=== PATIENT | female | born 1960 | race Caucasian/White ===

== ENCOUNTER 2022-03-18 14:34 | Emergency (ER) | payer MEDICAID, SELFPAY ==
[2022-03-18] VITALS (43 sets, daily range): BP systolic 114–151; BP diastolic 57–104; PULSE 70–98; RESP 4–28; TEMP 36.9; O2SAT 95–100
--- NOTE | 2022-03-18 14:30 | RT.EKG_ITS ---
APPROVED REPORT Exam: Resting ECG Reason for Exam: DYSPNEA Patient Location: E HR:72 bpm ECG Measurements Heart Rate 72 AXIS NE 133 P -23 QRSd 96 QRS 95 QT 405 T 39 QTc 443 Conclusion Sinus rhythm...normal P axis, V-rate 60- 99 Nonspecific T abnormalities, anterior leads...T <-0.10mV, V2-V4. Sinus. Normal axis. T wave inversion in lead V1-3. No STEMI. I have reviewed and interpreted ECG and agree with software generated interpretation.
--- NOTE | 2022-03-18 14:41 | W.ED.GENAD ---
Discharge Plan Disposition Patient Disposition: HOME Condition: Stable Discharge Details Clinical Impression: Acute exacerbation of chronic obstructive pulmonary disease Primary Care Provider: SABAS GONZALEZ ED Provider: Shawnee Gonzalez Home Meds and New Rx's Prescriptions: New albuterol sulfate 90 mcg/actuation HFA aerosol inhaler 2 puff inhalation Q6H PRN (Reason: shortness of breath or wheezing) Qty: 8.5 0RF Eliquis 5 mg tablet 5 mg PO BID Qty: 60 0RF benztropine 1 mg tablet 1 mg PO QHS Qty: 30 0RF fenofibrate 40 mg tablet 40 mg PO DAILY Qty: 30 0RF fluticasone propion-salmeterol [Advair Diskus] 100-50 mcg/dose blister with device 1 inh inhalation Q12H Qty: 60 0RF lisinopril-hydrochlorothiazide 20-12.5 mg tablet 1 tab PO DAILY Qty: 30 0RF metformin 500 mg tablet 250 mg PO DAILY Qty: 30 0RF olanzapine 20 mg tablet 20 mg PO BID Qty: 60 0RF pantoprazole [Protonix] 40 mg tablet,delayed release (DR/EC) 40 mg PO QHS Qty: 30 0RF ropinirole 2 mg tablet 2 mg PO DAILY Qty: 30 0RF simvastatin 20 mg tablet 20 mg PO QHS Qty: 30 0RF Spiriva with HandiHaler 18 mcg capsule, w/inhalation device 1 cap inhalation DAILY Qty: 30 0RF Rx Instructions: puncture 1 cap using device; one dose = 2 inhalations Trintellix 10 mg tablet 10 mg PO DAILY Qty: 30 0RF albuterol sulfate 2.5 mg /3 mL (0.083 %) solution for nebulization 1.25 mg inhalation TID 10 Days Qty: 45 0RF prednisone 20 mg tablet See Rx Instructions .ROUTE .COMPLEX Qty: 18 0RF Rx Instructions: Take 3 tabs daily for 3 days, then 2 tabs daily for 3 days, then 1 tab daily for 3 days. doxycycline hyclate 100 mg tablet 100 mg PO BID 7 Days Qty: 14 0RF Continued metformin 500 mg Tablet 250 mg PO DAILY ipratropium-albuterol 0.5 mg-3 mg(2.5 mg base)/3 mL Solution For Nebulization 3 ml INHALATION TID lisinopril-hydrochlorothiazide 20-12.5 mg Tablet 1 tab PO DAILY ropinirole 2 mg Tablet 2 mg PO DAILY pantoprazole [Protonix] 40 mg Tablet,Delayed Release (Dr/Ec) 40 mg PO QHS simvastatin 20 mg Tablet 20 mg PO QHS fluticasone propion-salmeterol [Advair Diskus] 500-50 mcg/dose Blister With Device 1 inh INHALATION Q12H benztropine 1 mg Tablet 1 mg PO QHS albuterol sulfate [Proventil HFA] 90 mcg/actuation Hfa Aerosol Inhaler 2 puff INHALATION QID albuterol sulfate [ProAir HFA] 90 mcg/actuation Hfa Aerosol Inhaler 2 puff INHALATION QID olanzapine 20 mg Tablet 20 mg PO BID Spiriva with HandiHaler 18 mcg Capsule, W/Inhalation Device 18 mcg INHALATION DAILY fenofibrate 40 mg Tablet 40 mg PO DAILY Eliquis 5 mg Tablet 5 mg PO BID Trintellix 10 mg Tablet 10 mg PO DAILY Discharge Instructions Instructions: COPD (Chronic Obstructive Pulmonary Disease) (ED) Additional Instructions: Your lab work, EKG and imaging today is reassuring and shows no evidence of acute concerning or significant findings. Your COVID test today is negative. Your symptoms may be due to an exacerbation of your COPD or asthma. You are being sent home with printed refill prescriptions of all of your medications to take them as directed. You were also given prescriptions for the antibiotic doxycycline and the steroid medication prednisone to start tomorrow and take as directed until finished. You have been placed on care management list to arrange for a follow-up appoint with your primary care doctor to establish care and for reevaluation. Return immediately to the emergency department if you develop any worsening or new concerning symptoms. Discharge Data Discharge Date/Time-TO BE ENTERED AT DEPARTURE: 03/18/22 19:04 Discharge Physician: Shawnee Gonzalez Medical Decision Making 61-year-old female with a history of COPD and asthma chronically on 2 L nasal cannula throughout the day and 3 L at night presents for shortness of breath and cough over the past few days. Sent from [facility] for shortness of breath. Patient states she has not had any of her medication for the past month since moving from [place]. Oxygen saturation 100% on 3 L nasal cannula oxygen. Patient has scattered wheezing throughout but demonstrates no signs of respiratory distress. Considering her age and history, will obtain screening labs, chest x-ray and COVID. We will give DuoNeb, Solu-Medrol and reassess. Patient continued to have wheezing and given another 5 mg albuterol neb with significant improvement of her symptoms. Labs and imaging reviewed. White blood cell count 3. Hemoglobin 10. Mag 1.7 which was repleted. No old labs to compare. D-dimer within normal limits. Troponin negative. COVID-negative. Chest x-ray negative. Patient is requesting to go home. She was given prescriptions for all of her medication and placed on care management list to arrange for a follow-up appointment with the primary care doctor to establish care. Patient was given [facility] information for help with prescriptions as needed. Usual and customary return precautions given prior to discharge. Medical Records Medical records reviewed: Yes I reviewed the patient's medical records. Imaging Data Radiologic Study: Radiologist's impression: XR PORTABLE CHEST AP CLINICAL HISTORY: ? cough, sob, r/o acute disease. ? TECHNIQUE:? 2D digital imaging was performed. COMPARISON:? No exams were available for comparison FINDINGS: Single AP portable view. Heart size is upper normal.? The mediastinum is not widened. Lungs are clear.? No infiltrates nor obvious pleural effusions. IMPRESSION: No acute pulmonary findings on this single AP portable view of the chest. Lab Data Lab results reviewed: Yes I reviewed the patient's lab results. Labs: Laboratory Tests Range/Units 03/18/22 03/18/22 03/18/22 15:30 16:10 16:10 WBC (4.4-10.8) 10^3/uL 3.27 L RBC (3.93-5.22) 10^6/uL 3.93 Hgb (11.2-15.7) g/dL 10.2 L Hct (36.0-46.0) % 33.9 L MCV (80-95) fL 86 MCH (27.0-33.0) pg 26.0 L MCHC (32.0-36.0) % 30.1 L RDW (11.7-14.6) % 15.0 H Plt Count (130-400) 10^3/uL 164 MPV (8.0-11.0) fL 9.8 Immature Gran % 0.6 Neutrophils % 48.3 Lymphocytes % 40.1 Monocytes % 11.0 Eosinophils % 0.0 Basophils % 0.0 Nucleated RBC % (0.0-0.3) % 0.0 Absolute Neutrophils (1.2-6.7) 10^3/uL 1.58 Absolute Lymphocytes (1.2-3.4) 10^3/uL 1.31 Absolute Monocytes (0.1-0.8) 10^3/uL 0.36 Absolute Eosinophils (0.0-0.7) 10^3/uL 0.00 Absolute Basophils (0.0-0.2) 10^3/uL 0.00 D-Dimer (<500) ng/mlFEU Sodium (136-145) mmol/L 142 Potassium (3.5-5.1) mmol/L 3.9 Chloride (98-107) mmol/L 103 Carbon Dioxide (21.0-32.0) mmol/L 32.1 H Anion Gap (3-11) mmol/L 6.9 BUN (7-18) mg/dL 6 L Creatinine (0.55-1.02) mg/dL 0.8 Estimated GFR/1.73 m2 (mL/min/1.73m2) >= 60.00 Glucose (74-106) mg/dL 96 Calcium (8.5-10.1) mg/dL 9.8 Magnesium (1.8-2.4) mg/dL 1.7 L Total Bilirubin (0.2-1.0) mg/dL 0.4 AST (15-37) U/L 14 L ALT (14-59) U/L 22 Alkaline Phosphatase (46-116) U/L 75 Troponin I (<or=60) ng/L < 50 Total Protein (6.4-8.2) g/dL 7.2 Albumin (3.4-5.0) g/dL 3.6 COVID-19 Source Nasal/Nares SARS-CoV-2 (PCR) (Negative) Negative Range/Units 03/18/22 16:10 WBC (4.4-10.8) 10^3/uL RBC (3.93-5.22) 10^6/uL Hgb (11.2-15.7) g/dL Hct (36.0-46.0) % MCV (80-95) fL MCH (27.0-33.0) pg MCHC (32.0-36.0) % RDW (11.7-14.6) % Plt Count (130-400) 10^3/uL MPV (8.0-11.0) fL Immature Gran % Neutrophils % Lymphocytes % Monocytes % Eosinophils % Basophils % Nucleated RBC % (0.0-0.3) % Absolute Neutrophils (1.2-6.7) 10^3/uL Absolute Lymphocytes (1.2-3.4) 10^3/uL Absolute Monocytes (0.1-0.8) 10^3/uL Absolute Eosinophils (0.0-0.7) 10^3/uL Absolute Basophils (0.0-0.2) 10^3/uL D-Dimer (<500) ng/mlFEU 426 Sodium (136-145) mmol/L Potassium (3.5-5.1) mmol/L Chloride (98-107) mmol/L Carbon Dioxide (21.0-32.0) mmol/L Anion Gap (3-11) mmol/L BUN (7-18) mg/dL Creatinine (0.55-1.02) mg/dL Estimated GFR/1.73 m2 (mL/min/1.73m2) Glucose (74-106) mg/dL Calcium (8.5-10.1) mg/dL Magnesium (1.8-2.4) mg/dL Total Bilirubin (0.2-1.0) mg/dL AST (15-37) U/L ALT (14-59) U/L Alkaline Phosphatase (46-116) U/L Troponin I (<or=60) ng/L Total Protein (6.4-8.2) g/dL Albumin (3.4-5.0) g/dL COVID-19 Source SARS-CoV-2 (PCR) (Negative) ECG Data Attestation: I personally reviewed and interpreted this ECG (s) as follows: Interpretation: rate of 72, normal axis, T wave inversion in leads V1-3, no STEMI. HPI General Mode of arrival: EMS. Date/Time Provider Initiated Documentation: 03/18/22 14:41. Limitations to Documentation: no limitations. Information obtained by: patient. Related Data Home Medications Medication Instructions Recorded Confirmed albuterol sulfate 2.5 mg/3 mL 1.25 mg (1.5 mL) inhalation TID 10 03/18/22 (0.083 %) solution for nebulization days #45 mL albuterol sulfate 90 mcg/actuation 2 puff inhalation Q6H PRN 03/18/22 aerosol inhaler shortness of breath or wheezing #8.5 grams albuterol sulfate 90 mcg/actuation 2 puff inhalation QID 03/18/22 03/18/22 aerosol inhaler (ProAir HFA) albuterol sulfate 90 mcg/actuation 2 puff inhalation QID 03/18/22 03/18/22 aerosol inhaler (Proventil HFA) apixaban 5 mg tablet (Eliquis) 5 mg PO BID 03/18/22 03/18/22 apixaban 5 mg tablet (Eliquis) 5 mg PO BID #60 tabs 03/18/22 benztropine 1 mg tablet 1 mg PO QHS 03/18/22 03/18/22 benztropine 1 mg tablet 1 mg PO QHS #30 tabs 03/18/22 doxycycline hyclate 100 mg tablet 100 mg PO BID 7 days #14 tabs 03/18/22 fenofibrate 40 mg tablet 40 mg PO DAILY 03/18/22 03/18/22 fenofibrate 40 mg tablet 40 mg PO DAILY #30 tabs 03/18/22 fluticasone 100 mcg-salmeterol 50 1 inh inhalation Q12H #60 ea 03/18/22 mcg/dose blistr powdr for inhalation (Advair Diskus) fluticasone 500 mcg-salmeterol 50 1 inh inhalation Q12H 03/18/22 03/18/22 mcg/dose blistr powdr for inhalation (Advair Diskus) ipratropium 0.5 mg-albuterol 3 mg 3 ml inhalation TID 03/18/22 03/18/22 (2.5 mg base)/3 mL nebulization soln lisinopril 20 1 tab PO DAILY 03/18/22 03/18/22 mg-hydrochlorothiazide 12.5 mg tablet lisinopril 20 1 tab PO DAILY #30 tabs 03/18/22 mg-hydrochlorothiazide 12.5 mg tablet metformin 500 mg tablet 250 mg PO DAILY 03/18/22 03/18/22 metformin 500 mg tablet 250 mg PO DAILY #30 tabs 03/18/22 olanzapine 20 mg tablet 20 mg PO BID 03/18/22 03/18/22 olanzapine 20 mg tablet 20 mg PO BID #60 tabs 03/18/22 pantoprazole 40 mg tablet,delayed 40 mg PO QHS 03/18/22 03/18/22 release (Protonix) pantoprazole 40 mg tablet,delayed 40 mg PO QHS #30 tabs 03/18/22 release (Protonix) prednisone 20 mg tablet See Rx Instructions .Route 03/18/22 .COMPLEX #18 tabs ropinirole 2 mg tablet 2 mg PO DAILY 03/18/22 03/18/22 ropinirole 2 mg tablet 2 mg PO DAILY #30 tabs 03/18/22 simvastatin 20 mg tablet 20 mg PO QHS 03/18/22 03/18/22 simvastatin 20 mg tablet 20 mg PO QHS #30 tabs 03/18/22 tiotropium bromide 18 mcg capsule 1 cap inhalation DAILY #30 03/18/22 with inhalation device (Spiriva inhalations with HandiHaler) tiotropium bromide 18 mcg capsule 18 mcg inhalation DAILY 03/18/22 03/18/22 with inhalation device (Spiriva with HandiHaler) vortioxetine 10 mg tablet 10 mg PO DAILY 03/18/22 03/18/22 (Trintellix) vortioxetine 10 mg tablet 10 mg PO DAILY #30 tabs 03/18/22 (Trintellix) Previous Rx's Medication Instructions Recorded albuterol sulfate 2.5 mg/3 mL 1.25 mg (1.5 mL) inhalation TID 10 03/18/22 (0.083 %) solution for nebulization days #45 mL albuterol sulfate 90 mcg/actuation 2 puff inhalation Q6H PRN 03/18/22 aerosol inhaler shortness of breath or wheezing #8.5 grams apixaban 5 mg tablet (Eliquis) 5 mg PO BID #60 tabs 03/18/22 benztropine 1 mg tablet 1 mg PO QHS #30 tabs 03/18/22 doxycycline hyclate 100 mg tablet 100 mg PO BID 7 days #14 tabs 03/18/22 fenofibrate 40 mg tablet 40 mg PO DAILY #30 tabs 03/18/22 fluticasone 100 mcg-salmeterol 50 1 inh inhalation Q12H #60 ea 03/18/22 mcg/dose blistr powdr for inhalation (Advair Diskus) lisinopril 20 1 tab PO DAILY #30 tabs 03/18/22 mg-hydrochlorothiazide 12.5 mg tablet metformin 500 mg tablet 250 mg PO DAILY #30 tabs 03/18/22 olanzapine 20 mg tablet 20 mg PO BID #60 tabs 03/18/22 pantoprazole 40 mg tablet,delayed 40 mg PO QHS #30 tabs 03/18/22 release (Protonix) prednisone 20 mg tablet See Rx Instructions .Route 03/18/22 .COMPLEX #18 tabs ropinirole 2 mg tablet 2 mg PO DAILY #30 tabs 03/18/22 simvastatin 20 mg tablet 20 mg PO QHS #30 tabs 03/18/22 tiotropium bromide 18 mcg capsule 1 cap inhalation DAILY #30 03/18/22 with inhalation device (Spiriva inhalations with HandiHaler) vortioxetine 10 mg tablet 10 mg PO DAILY #30 tabs 03/18/22 (Trintellix) General Stated Complaint: RespSymp SAMUEL: 3 Review of Systems All systems reviewed & are unremarkable except as noted in HPI and below Constitutional Constitutional: Denies chills, Denies excessive sweating, Denies fatigue, Denies fever(s), Denies weakness and Denies weight loss Eyes Eyes: Reports system reviewed and no additional complaints, except as documented and Denies blurry vision ENT Ears, Nose, Mouth, and Throat: Denies vertigo, Denies dizziness, Denies otalgia, Denies nasal congestion, Denies sore throat and Denies throat swelling Cardiovascular Cardiovascular: Denies chest pain, Denies syncope, Denies rapid heart rate and Reports dyspnea Respiratory Respiratory: Denies chest congestion, Reports cough, Denies pain on inspiration and Reports dyspnea Gastrointestinal Gastrointestinal: Denies abdominal pain, Denies diarrhea and Denies vomiting Genitourinary Genitourinary: Denies hematuria, Denies dysuria and Denies flank pain Musculoskeletal Musculoskeletal: Denies back pain and Denies joint swelling Integumentary/Breasts Skin/Breast: Denies lesions and Denies rash Neurologic Neurologic: Denies behavioral changes, Denies confusion, Denies vertigo, Denies dizziness, Denies syncope, Denies localized weakness and Denies weakness Psychiatric Psychiatric: Denies behavioral changes, Denies confusion and Denies depression Endocrine Endocrine: Denies excessive sweating and Denies fatigue Hematologic/Lymphatic Hematologic/Lymphatic: Denies easy bruising and Denies lymphadenopathy Allergic/Immunologic Allergic/Immunologic: Denies throat swelling PFSH All Active Problems (Updated 03/18/22 @ 18:25 by Shawnee Gonzalez DO) Acute exacerbation of chronic obstructive pulmonary disease (Acute) Medical History (Updated 03/18/22 @ 18:25 by Shawnee Gonzalez DO) Asthma COPD (chronic obstructive pulmonary disease) Pulmonary embolism Surgical History (Updated 03/18/22 @ 15:06 by Shawnee Gonzalez DO) History of ankle surgery History of bilateral tubal ligation History of hysterectomy Social History Smoking risk assessment performed?: No Do you feel safe at home: Yes Exam Const General: cooperative Orientation: alert, awake and oriented x3 HENMT Head: normal to inspection Ears: hearing grossly normal bilaterally and external ears normal General nose exam: external nose normal Face and sinus: normal facial exam Mouth: oral mucosae normal Teeth and gingiva: dentition normal Throat: posterior oropharynx normal Eyes General: appearance normal, both eyes and all related structures Eyelids: eyelids normal Pupils: PERRL EOM: EOM intact bilaterally Neck Neck: normal visual inspection Lymphatic: no lymphadenopathy noted Chest Chest: normal inspection of the chest Resp Effort & Inspection: normal respiratory effort and able to speak in complete sentences Auscultation: wheezes scattered wheezes Cardio Rate: regular rate Rhythm: regular rhythm GI Inspection: normal to inspection Palpation: soft, not firm, no guarding, no hepatosplenomegaly, no masses and nontender Auscultation: normal bowel sounds Back/Spine/Pelvis Back: no CVA tenderness Skin General skin exam: no rashes or lesions noted Neuro General: patient alert and patient awake Cognition: normal cognition Speech: speech normal Gait: normal gait Motor: muscle tone normal throughout Sensory Exam: no sensory deficits noted Extrem General: normal to inspection, full ROM, capillary refill normal and no edema Psych Appearance: grossly normal Mental Status: mental status grossly normal Speech and Movement: speech and movement normal Affect: normal affect Thought Process: normal Course Vital Signs Vital signs: Vital Signs Temperature 98.4 F 03/18/22 14:33 Pulse 82 03/18/22 14:33 Respiratory Rate 24 03/18/22 14:33 Blood Pressure 151/100 H 03/18/22 14:33 Pulse Oximetry 100 03/18/22 14:33 Temperature 98.4 F 03/18/22 14:33 Temperature Source Temporal Artery Scan 03/18/22 14:33 Pulse 82 03/18/22 14:33 Respiratory Rate 24 03/18/22 14:33 Blood Pressure 151/100 H 03/18/22 14:33 Blood Pressure Position Sitting 03/18/22 14:33 Pulse Oximetry 100 03/18/22 14:33 Oxygen Delivery Method Nasal Cannula 03/18/22 14:33 Oxygen Flow Rate 2 03/18/22 14:33
--- NOTE | 2022-03-18 15:00 | DI.RAD_ITS ---
Exam(s) XR PORTABLE CHEST AP EXAM: XR PORTABLE CHEST AP CLINICAL HISTORY: cough, sob, r/o acute disease. TECHNIQUE: 2D digital imaging was performed. COMPARISON: No exams were available for comparison FINDINGS: Single AP portable view. Heart size is upper normal. The mediastinum is not widened. Lungs are clear. No infiltrates nor obvious pleural effusions. IMPRESSION: No acute pulmonary findings on this single AP portable view of the chest. DATA REPOSITORY: RADIATION DOSE DELIVERED: All CT scans at this facility use at least one of these dose optimization techniques: automated exposure control; mA and/or kV adjustment per patient size (includes targeted e xams where dose is matched to clinical indication); or iterative reconstruction.
[2022-03-18 15:41] LABS: Source Nasal/Nares
[2022-03-18] MEDS: Albuterol/Ipratropium 3 ML UPD VIAL UPD (15:41)
[2022-03-18] MEDS: methylPREDNISolone SUCC 125 MG VIAL IVP (15:41)
[2022-03-18] MEDS: Albuterol 2.5 MG/3 ML INH SOLN VIAL 5 MG UPD (15:57)
[2022-03-18 16:27] LABS: Abs Immature Grans 0.02 10^3/uL (0.0-0.06); Absolute Lymphocyte Count 1.31 10^3/uL (1.2-3.4); Absolute Monocyte Count 0.36 10^3/uL (0.1-0.8); Absolute Neutrophil Count 1.58 10^3/uL (1.2-6.7); HCT 33.9 % (36.0-46.0); HGB 10.2 g/dL (11.2-15.7); Immature Grans % 0.6; Lymphocytes % 40.1; MCHC 30.1 % (32.0-36.0); MCV 86 fL (80-95); MPV 9.8 fL (8.0-11.0); Neutrophils % 48.3; Platelet Count 164 10^3/uL (130-400); RBC 3.93 10^6/uL (3.93-5.22); RDW-SD 47.7 fL; WBC 3.27 10^3/uL (4.4-10.8)
[2022-03-18 16:36] LABS: COVID-19 PCR Negative (Negative)
[2022-03-18 16:43] LABS: ALT 22 U/L (14-59); AST 14 U/L (15-37); Albumin 3.6 g/dL (3.4-5.0); Alkaline Phosphatase 75 U/L (46-116); Anion Gap 6.9 mmol/L (3-11); BUN 6 mg/dL (7-18); Bilirubin, Total 0.4 mg/dL (0.2-1.0); CO2 32.1 mmol/L (21.0-32.0); CREATININE 0.8 mg/dL (0.55-1.02); Calcium 9.8 mg/dL (8.5-10.1); Chloride 103 mmol/L (98-107); Glucose 96 mg/dL (74-106); Magnesium 1.7 mg/dL (1.8-2.4); Potassium 3.9 mmol/L (3.5-5.1); Sodium 142 mmol/L (136-145); Total Protein 7.2 g/dL (6.4-8.2); Troponin I < 50 ng/L (<or=60)
[2022-03-18] MEDS: MAGNESIUM SULFATE 1 GM/100 ML BAG IVPB (17:05)
[2022-03-18 17:07] LABS: D-Dimer 426 ng/mlFEU (<500)
--- NOTE | 2022-03-18 18:38 | NUR.NOTE ---
Nursing Note: PT INFO FAXED TO PCP FOR FOLLOW UP NEXT WEEK. WILFRID, ED
== END 2022-03-18 19:04 | disposition home or self-care (01) ==
PROVIDERS: Emergency Provider Physician Assistant; PCP Nurse Practitioner Family
DX: J44.1 Chronic obstructive pulmonary disease with (acute) exacerbation (principal); R06.00 Dyspnea, unspecified; R05.1 Acute cough
CPT/HCPCS: 36415; 80053; 87635; 93005; 96365; 96375; 99284; 71045; 83735; 84484; 85025; 85379; 93010; J2930; J3475; J7613; J7620

== ENCOUNTER 2022-04-30 19:15 | Outpatient (REF) | payer MEDICAID, SELFPAY ==
[2022-04-30 19:22] LABS: Abs Immature Grans 0.06 10^3/uL (0.0-0.06); Absolute Lymphocyte Count 1.43 10^3/uL (1.2-3.4); Absolute Monocyte Count 0.65 10^3/uL (0.1-0.8); Absolute Neutrophil Count 4.32 10^3/uL (1.2-6.7); HCT 34.2 % (36.0-46.0); Immature Grans % 0.9; Lymphocytes % 22.1; MCH 26.8 pg (27.0-33.0); MCHC 32.2 % (32.0-36.0); MCV 83 fL (80-95); MPV 10.1 fL (8.0-11.0); Monocytes % 10.1; Neutrophils % 66.9; Platelet Count 225 10^3/uL (130-400); RBC 4.11 10^6/uL (3.93-5.22); RDW 17.8 % (11.7-14.6); RDW-SD 52.1 fL; WBC 6.46 10^3/uL (4.4-10.8)
[2022-04-30 19:48] LABS: ALT 22 U/L (14-59); AST 19 U/L (15-37); Alkaline Phosphatase 81 U/L (46-116); Anion Gap 12.1 mmol/L (3-11); BUN 18 mg/dL (7-18); Bilirubin, Total 0.4 mg/dL (0.2-1.0); CO2 27.9 mmol/L (21.0-32.0); CREATININE 1.9 mg/dL (0.55-1.02); Calcium 9.5 mg/dL (8.5-10.1); Chloride 99 mmol/L (98-107); Estimated GFR 26.96 (mL/min/1.73m2); Glucose 102 mg/dL (74-106); Potassium 3.8 mmol/L (3.5-5.1); Sodium 139 mmol/L (136-145); TSH (W/Ref FT4) 0.97 uIU/mL (0.36-3.74); Total Protein 7.2 g/dL (6.4-8.2)
== END 2022-04-30 19:16 | disposition home or self-care (01) ==
LOC: NCHCN 19:15
PROVIDERS: PCP Nurse Practitioner Family; Visit Provider Nurse Practitioner Family
DX: J44.9 Chronic obstructive pulmonary disease, unspecified (principal); Z79.899 Other long term (current) drug therapy
CPT/HCPCS: 80053; 84443; 85025

== ENCOUNTER 2022-05-07 19:01 | Outpatient (REF) | payer MEDICAID, SELFPAY ==
[2022-05-07 18:08] LABS: Abs Immature Grans 0.01 10^3/uL (0.0-0.06); Absolute Eosinophil Count 0.01 10^3/uL (0.0-0.7); Absolute Lymphocyte Count 0.73 10^3/uL (1.2-3.4); Absolute Monocyte Count 0.33 10^3/uL (0.1-0.8); Absolute Neutrophil Count 2.39 10^3/uL (1.2-6.7); Eosinophils % 0.3; HCT 33.8 % (36.0-46.0); HGB 10.7 g/dL (11.2-15.7); Immature Grans % 0.3; MCH 26.7 pg (27.0-33.0); MCHC 31.7 % (32.0-36.0); MCV 84 fL (80-95); MPV 9.8 fL (8.0-11.0); Monocytes % 9.5; Neutrophils % 68.9; Platelet Count 161 10^3/uL (130-400); RBC 4.01 10^6/uL (3.93-5.22); RDW 17.6 % (11.7-14.6); RDW-SD 54.4 fL; WBC 3.47 10^3/uL (4.4-10.8)
== END 2022-05-07 19:02 | disposition home or self-care (01) ==
LOC: NCHCN 19:01
PROVIDERS: PCP Nurse Practitioner Family; Visit Provider Nurse Practitioner Family
DX: Z51.81 Encounter for therapeutic drug level monitoring (principal)
CPT/HCPCS: 85025

== ENCOUNTER 2022-05-13 16:42 | Outpatient (REF) | payer MEDICAID, SELFPAY ==
[2022-05-13 16:56] LABS: Abs Immature Grans 0.02 10^3/uL (0.0-0.06); Absolute Lymphocyte Count 0.89 10^3/uL (1.2-3.4); Absolute Neutrophil Count 3.41 10^3/uL (1.2-6.7); HGB 10.4 g/dL (11.2-15.7); Immature Grans % 0.4; Lymphocytes % 18.5; MCH 27.6 pg (27.0-33.0); MCHC 32.5 % (32.0-36.0); MCV 85 fL (80-95); MPV 10.6 fL (8.0-11.0); Monocytes % 10.4; Neutrophils % 70.7; Platelet Count 172 10^3/uL (130-400); RBC 3.77 10^6/uL (3.93-5.22); RDW 18.1 % (11.7-14.6); RDW-SD 55.2 fL; WBC 4.82 10^3/uL (4.4-10.8)
[2022-05-13 17:06] LABS: ALT 17 U/L (14-59); AST 14 U/L (15-37); Albumin 3.7 g/dL (3.4-5.0); Alkaline Phosphatase 75 U/L (46-116); Anion Gap 14.3 mmol/L (3-11); BUN 41 mg/dL (7-18); Bilirubin, Total 0.4 mg/dL (0.2-1.0); CO2 24.7 mmol/L (21.0-32.0); CREATININE 3.5 mg/dL (0.55-1.02); Calcium 9.2 mg/dL (8.5-10.1); Chloride 101 mmol/L (98-107); Estimated GFR 14.34 (mL/min/1.73m2); Glucose 144 mg/dL (74-106); Potassium 3.9 mmol/L (3.5-5.1); Sodium 140 mmol/L (136-145); Total Protein 7.2 g/dL (6.4-8.2)
== END 2022-05-13 16:43 | disposition home or self-care (01) ==
LOC: NCHCN 16:42
PROVIDERS: PCP Nurse Practitioner Family; Visit Provider Nurse Practitioner Family
DX: N17.9 Acute kidney failure, unspecified (principal)
CPT/HCPCS: 80053; 85025

== ENCOUNTER 2022-05-14 12:51 | Emergency (ER) | payer MEDICAID, SELFPAY ==
[2022-05-14] VITALS (58 sets, daily range): BP systolic 72–132; BP diastolic 30–95; PULSE 82–120; RESP 4–30; O2SAT 94–100
--- NOTE | 2022-05-14 13:15 | DI.RAD_ITS ---
Exam(s) XR PORTABLE CHEST AP EXAM: XR PORTABLE CHEST AP CLINICAL HISTORY: sob TECHNIQUE: COMPARISON: CR XR PORTABLE CHEST AP from 03/18/2022 FINDINGS: Portable upright chest at 1443 hours. The heart is not enlarged. Right lung is clear. On the left, there is some obscuration of the diaphragm raising the possibility of a basilar infiltra te or left pleural effusion.this finding was not present on prior radiographs of March 2022. Findings could represent pulmonary consolidation or left pleural effusion. PA and lateral chest suggested for further evaluation if clinically appropriate. IMPRESSION: RADIATION DOSE DELIVERED: Total DLP
--- NOTE | 2022-05-14 13:34 | ED.GENADUL_ITS ---
Discharge Plan Disposition Patient Disposition: STILL A PATIENT Condition: Stable Discharge Details Chief Complaint: RespSymp Primary Care Provider: SABAS GONZALEZ ED Provider: Shaka Major Home Meds and New Rx's Prescriptions: No Action fluticasone propion-salmeterol [Advair Diskus] 500-50 mcg/dose blister with device 1 inh inhalation Q12H ipratropium-albuterol 0.5 mg-3 mg(2.5 mg base)/3 mL Solution For Nebulization 3 ml INHALATION TID albuterol sulfate [ProAir HFA] 90 mcg/actuation Hfa Aerosol Inhaler 2 puff INHALATION QID albuterol sulfate 90 mcg/actuation HFA aerosol inhaler 2 puff inhalation Q6H PRN (Reason: shortness of breath or wheezing) Qty: 8.5 0RF Eliquis 5 mg tablet 5 mg PO BID Qty: 60 0RF benztropine 1 mg tablet 1 mg PO QHS Qty: 30 0RF fenofibrate 40 mg tablet 40 mg PO DAILY Qty: 30 0RF fluticasone propion-salmeterol [Advair Diskus] 100-50 mcg/dose blister with device 1 inh inhalation Q12H Qty: 60 0RF lisinopril-hydrochlorothiazide 20-12.5 mg tablet 1 tab PO DAILY Qty: 30 0RF metformin 500 mg tablet 250 mg PO DAILY Qty: 30 0RF olanzapine 20 mg tablet 20 mg PO BID Qty: 60 0RF pantoprazole [Protonix] 40 mg tablet,delayed release (DR/EC) 40 mg PO QHS Qty: 30 0RF ropinirole 2 mg tablet 2 mg PO DAILY Qty: 30 0RF simvastatin 20 mg tablet 20 mg PO QHS Qty: 30 0RF Spiriva with HandiHaler 18 mcg capsule, w/inhalation device 1 cap inhalation DAILY Qty: 30 0RF Rx Instructions: puncture 1 cap using device; one dose = 2 inhalations Trintellix 10 mg tablet 10 mg PO DAILY Qty: 30 0RF prednisone 20 mg tablet See Rx Instructions .ROUTE .COMPLEX Qty: 18 0RF Rx Instructions: Take 3 tabs daily for 3 days, then 2 tabs daily for 3 days, then 1 tab daily for 3 days. Medical Decision Making 62-year-old female history of schizophrenia, COPD, presents with shortness of breath dry cough and wheezing, expiratory wheeze on examination tachycardia and tachypnea. Relative hypoxia improved on nasal cannula. Will start nebs and steroids will obtain x-ray and basic labs. Likely COPD exacerbation versus viral URI versus less likely ACS versus less likely PE. Disposition pending reassessment of symptoms 15: 03 patient resting comfortably respiratory distress resolved after nebs and steroids. Evidence of SHAUN however no evidence of fluid overload as patient does not have any peripheral edema no pulmonary edema patient also endorses that she urinated normally last night did not urinate earlier today or this afternoon. Consider prerenal SHAUN versus medication related, no evidence of obstructive uropathy per history. Will bolus fluids reassess basic metabolic panel post hydration. HPI General Date/Time Provider Initiated Documentation: 05/14/22 13:21 . HPI Narrative: 62-year-old female history of schizophrenia, COPD presents with shortness of breath and cough. Uses home oxygen. Related Data Home Medications Medication Instructions Recorded Confirmed albuterol sulfate 90 mcg/actuation 2 puff inhalation Q6H PRN 03/18/22 aerosol inhaler shortness of breath or wheezing #8.5 grams albuterol sulfate 90 mcg/actuation 2 puff inhalation QID 03/18/22 03/18/22 aerosol inhaler (ProAir HFA) apixaban 5 mg tablet (Eliquis) 5 mg PO BID #60 tabs 03/18/22 benztropine 1 mg tablet 1 mg PO QHS #30 tabs 03/18/22 fenofibrate 40 mg tablet 40 mg PO DAILY #30 tabs 03/18/22 fluticasone 100 mcg-salmeterol 50 1 inh inhalation Q12H #60 ea 03/18/22 mcg/dose blistr powdr for inhalation (Advair Diskus) ipratropium 0.5 mg-albuterol 3 mg 3 ml inhalation TID 03/18/22 03/18/22 (2.5 mg base)/3 mL nebulization soln lisinopril 20 1 tab PO DAILY #30 tabs 03/18/22 mg-hydrochlorothiazide 12.5 mg tablet metformin 500 mg tablet 250 mg PO DAILY #30 tabs 03/18/22 olanzapine 20 mg tablet 20 mg PO BID #60 tabs 03/18/22 pantoprazole 40 mg tablet,delayed 40 mg PO QHS #30 tabs 03/18/22 release (Protonix) prednisone 20 mg tablet See Rx Instructions .Route 03/18/22 .COMPLEX #18 tabs ropinirole 2 mg tablet 2 mg PO DAILY #30 tabs 03/18/22 simvastatin 20 mg tablet 20 mg PO QHS #30 tabs 03/18/22 tiotropium bromide 18 mcg capsule 1 cap inhalation DAILY #30 03/18/22 with inhalation device (Spiriva inhalations with HandiHaler) vortioxetine 10 mg tablet 10 mg PO DAILY #30 tabs 03/18/22 (Trintellix) fluticasone 500 mcg-salmeterol 50 1 inh inhalation Q12H 04/22/22 mcg/dose blistr powdr for inhalation (Advair Diskus) Previous Rx's Medication Instructions Recorded albuterol sulfate 90 mcg/actuation 2 puff inhalation Q6H PRN 03/18/22 aerosol inhaler shortness of breath or wheezing #8.5 grams apixaban 5 mg tablet (Eliquis) 5 mg PO BID #60 tabs 03/18/22 benztropine 1 mg tablet 1 mg PO QHS #30 tabs 03/18/22 fenofibrate 40 mg tablet 40 mg PO DAILY #30 tabs 03/18/22 fluticasone 100 mcg-salmeterol 50 1 inh inhalation Q12H #60 ea 03/18/22 mcg/dose blistr powdr for inhalation (Advair Diskus) lisinopril 20 1 tab PO DAILY #30 tabs 03/18/22 mg-hydrochlorothiazide 12.5 mg tablet metformin 500 mg tablet 250 mg PO DAILY #30 tabs 03/18/22 olanzapine 20 mg tablet 20 mg PO BID #60 tabs 03/18/22 pantoprazole 40 mg tablet,delayed 40 mg PO QHS #30 tabs 03/18/22 release (Protonix) prednisone 20 mg tablet See Rx Instructions .Route 03/18/22 .COMPLEX #18 tabs ropinirole 2 mg tablet 2 mg PO DAILY #30 tabs 03/18/22 simvastatin 20 mg tablet 20 mg PO QHS #30 tabs 03/18/22 tiotropium bromide 18 mcg capsule 1 cap inhalation DAILY #30 03/18/22 with inhalation device (Spiriva inhalations with HandiHaler) vortioxetine 10 mg tablet 10 mg PO DAILY #30 tabs 03/18/22 (Trintellix) Allergies Allergy/AdvReac Type Severity Reaction Status Date / Time amoxicillin [From Augmentin] Allergy Intermediate Verified 04/20/22 12:43 clavulanic acid Allergy Intermediate Verified 04/20/22 12:43 [From Augmentin] prednisone Allergy Intermediate Verified 04/20/22 12:43 General Stated Complaint: RespSymp SAMUEL: 2 Review of Systems Narrative: Review of Systems Constitutional: negative Eyes: negative ENT: negative Cardiovascular: negative Respiratory: Shortness of breath, cough Gastrointestinal: negative : negative Musculoskeletal: negative Skin: negative Neurologic: negative Psych: negative PFSH All Active Problems (Updated 04/20/22 @ 13:49 by Ilene Bliss) Alcohol abuse (Chronic) Substance abuse (Acute) Anxiety and depression (Chronic) GERD (gastroesophageal reflux disease) (Chronic) Essential hypertension (Acute) Hyperlipidemia (Acute) Tobacco abuse (Acute) Achilles tendinitis (Acute) Obesity (Chronic) Dementia without behavioral disturbance (Acute) Restless legs syndrome (Acute) Hearing loss (Acute) Insomnia, transient (Acute) Chronic atrial fibrillation (Acute) Asymptomatic postmenopausal status (Acute) Angina pectoris (Chronic) Anemia (Chronic) Diabetes mellitus with cataract (Acute) Age related osteoporosis (Acute) Abnormal EKG (Acute) Schizophrenia (Chronic) Saddle pulmonary embolus (Acute) Medical History (Updated 04/20/22 @ 13:49 by Ilene Bliss) Asthma COPD (chronic obstructive pulmonary disease) Hepatitis Pulmonary embolism Surgical History (Updated 04/20/22 @ 14:02 by Ilene Bliss) History of ankle surgery History of bilateral tubal ligation History of hysterectomy Hx of cholecystectomy Family History (Updated 04/20/22 @ 13:58 by Ilene Bliss) Father History of blood clots Emphysema lung Sister Diabetes Mother Glaucoma Social History (Updated 04/20/22 @ 13:50 by Ilene Bliss) Smoking/Tobacco Use Status: Current every day Smoking risk assessment performed?: Yes Alcohol Intake: never Substance use type: does not use Do you feel safe at home: Yes Do you feel safe in your relationship?: Yes Exam Narrative Exam Narrative: Physical Examination General: alert, awake, cooperative, resting comfortably, no acute distress HEENT: normocephalic, atraumatic; PERRL, EOM intact, conjunctiva normal; no nasal discharge; moist mucous membranes, oral and pharyngeal mucosa normal, tolerating secretions Neck: supple, trachea midline; full ROM Chest: normal to inspection Respiratory: Expiratory wheeze bilaterally, slight tachypnea Cardiac: Tachycardia, regular rhythm, S1S2 intact, no murmurs rubs or gallops GI: abdomen soft, non-tender, non-distended; no palpable mass or hepatosplenomegaly Skin: no lesions, rashes or trauma appreciated Neuro: AAOx3, normal speech, moving all extremities Psych: Appropriate mood and affect Course Vital Signs Vital signs: Vital Signs Pulse 120 H 05/14/22 13:22 Respiratory Rate 18 05/14/22 13:22 Pulse Oximetry 96 05/14/22 13:22 Temperature Source Temporal Artery Scan 05/14/22 13:22 Pulse 120 H 05/14/22 13:22 Respiratory Rate 18 05/14/22 13:22 Blood Pressure Position Sitting 05/14/22 13:22 Pulse Oximetry 96 05/14/22 13:22 Oxygen Delivery Method Room Air 05/14/22 13:22 Oxygen Flow Rate 0 05/14/22 13:22
[2022-05-14] MEDS: Albuterol 2.5 MG/3 ML INH SOLN VIAL UPD (13:39)
[2022-05-14] MEDS: Ipratropium 0.5 MG/2.5 ML UPD VIAL UPD (13:39)
[2022-05-14 14:32] LABS: Source Nasal/Nares
[2022-05-14] MEDS: Dexamethasone 10 MG/ML VIAL IVP (14:33)
[2022-05-14 14:34] LABS: Abs Immature Grans 0.03 10^3/uL (0.0-0.06); Absolute Monocyte Count 0.48 10^3/uL (0.1-0.8); HCT 33.1 % (36.0-46.0); HGB 10.5 g/dL (11.2-15.7); Immature Grans % 0.7; Lymphocytes % 23.8; MCH 27.1 pg (27.0-33.0); MCHC 31.7 % (32.0-36.0); MCV 86 fL (80-95); MPV 9.9 fL (8.0-11.0); Monocytes % 11.4; Neutrophils % 64.1; Platelet Count 182 10^3/uL (130-400); RBC 3.87 10^6/uL (3.93-5.22); RDW 18.3 % (11.7-14.6); RDW-SD 56.1 fL; WBC 4.21 10^3/uL (4.4-10.8)
[2022-05-14 14:35] LABS: BE (Venous) 1 mmol/L (-2-3); HCO3 (Venous) 27 mmol/L (23-28); O2 Sat (Venous) 83 %; TCO2 (Venous) 25 mmol/L (24-29); pCO2 (Venous) 50 mmHg (41-51); pH (Venous) 7.33 (7.31-7.41); pO2 (Venous) 50 mmHg
[2022-05-14 14:53] LABS: ALT 16 U/L (14-59); AST 14 U/L (15-37); Albumin 3.7 g/dL (3.4-5.0); Alkaline Phosphatase 81 U/L (46-116); Anion Gap 9.8 mmol/L (3-11); BUN 37 mg/dL (7-18); Bilirubin, Total 0.5 mg/dL (0.2-1.0); CO2 28.2 mmol/L (21.0-32.0); CREATININE 3.1 mg/dL (0.55-1.02); Calcium 9.3 mg/dL (8.5-10.1); Chloride 102 mmol/L (98-107); Estimated GFR 16.59 (mL/min/1.73m2); Glucose 129 mg/dL (74-106); Sodium 140 mmol/L (136-145); Total Protein 7.3 g/dL (6.4-8.2)
[2022-05-14] MEDS: Azithromycin 250 MG TAB 500 MG PO (14:55)
[2022-05-14] MEDS: Normal Saline 1,000 ML 1000 ML IV ×2 (15:04→18:27)
[2022-05-14 15:15] LABS: COVID-19 PCR Negative (Negative)
--- NOTE | 2022-05-14 15:27 | NUR.NOTE ---
Nursing Note: Pt's BP taken multiple times - recurring readings around 70/40. Pt is awake, alert, asymptomatic. Dr. Molina aware, pt is getting IV fluids now.
--- NOTE | 2022-05-14 17:00 | DI.RAD_ITS ---
Exam(s) XR CHEST 2V PA LATERAL EXAM: XR CHEST 2V PA LATERAL CLINICAL HISTORY: sob, r/o pneumonia TECHNIQUE: 2D digital imaging was performed. COMPARISON: CR XR PORTABLE CHEST AP from 03/18/2022 CR XR PORTABLE CHEST AP from 05/14/2022 FINDINGS: Exam is limited by patient body habitus. MEDIASTINUM: Normal. HEART: Normal. PULMONARY VASCULATURE: Normal. LUNGS: Streaky densities seen posteriorly on the lateral view. PLEURAL SPACE: No pleural effusion or pneumothorax. BONE:Unremarkable for age. IMPRESSION: Streaky densities in the posterior right lower lobe could represent atelectasis. Pneumonia not exclu ded. Exam somewhat limited by patient body habitus. DATA REPOSITORY: RADIATION DOSE DELIVERED:
[2022-05-14 17:43] LABS: Anion Gap 8.2 mmol/L (3-11); BUN 37 mg/dL (7-18); CO2 29.8 mmol/L (21.0-32.0); CREATININE 2.8 mg/dL (0.55-1.02); Calcium 8.8 mg/dL (8.5-10.1); Chloride 105 mmol/L (98-107); Estimated GFR 18.75 (mL/min/1.73m2); Glucose 96 mg/dL (74-106); Potassium 4.2 mmol/L (3.5-5.1); Sodium 143 mmol/L (136-145)
--- NOTE | 2022-05-14 17:57 | DI.VRAD_ITS ---
PROCEDURE INFORMATION: Exam: XR Chest Exam date and time: 05/14/2022 5:29 PM Age: 62 years old Clinical indication: Other: SOB, R/O pneumonia TECHNIQUE: Imaging protocol: Radiologic exam of the chest. Views: 2 views. COMPARISON: CR XR PORTABLE CHEST AP 05/14/2022 2:22 PM FINDINGS: Lungs: Mild opacities in the right base may represent atelectasis or pneumonia Pleural spaces: Unremarkable. No pleural effusion. No pneumothorax. Heart/Mediastinum: Unremarkable. No cardiomegaly. Bones/joints: Unremarkable. IMPRESSION: Mild opacities in the right base may represent atelectasis or pneumonia. Dictated and Authenticated by: Doreen Manuel MD. Ordering:KATHY Mallory MD
--- NOTE | 2022-05-14 18:20 | W.EDPROG ---
Date of service: 05/14/22 Time of Service: 16:00 Medical Decision Making 1600 -- Case endorsed to follow-up on BMP to reassess renal function. If renal function improves, will plan for discharge to home and consider follow-up with nephrology. Patient reports a chronic cough and states that she has not had any sputum production or fever and denies any new shortness of breath. She is chronically on 2 L nasal cannula oxygen. 1800 --repeat BMP notes improvement in creatinine to 2.8 from 3.5 earlier today. Patient however has been hypotensive in the last 2 hours, 80s/50s. Blood pressure now 86/52. Patient appears comfortable. Discussed with patient that I recommend additional IV fluids. Patient is concerned about getting home to her apartment before 8 PM as the doors will be locked. Patient is agreeable to IV fluids. Suspected that her SHAUN may be prerenal in the setting of dehydration as it did improve with fluids. She had an initial 1 view chest x-ray which showed a questionable left basilar infiltrate so a two-view chest x-ray was ordered which noted mild opacities in the right lung base which may be atelectasis or pneumonia. In the setting of lack of fever, productive cough and no acute shortness of breath, will hold on treatment for pneumonia at this time. 1999 -- Pt is requesting to go home. Her BP and renal function has continued to improve with IV fluids so suspect her SHAUN is pre-renal. BP 104/66. Creatinine now 2.3. Disposition decision made weighing the risks and benefits of hospitalization versus outpatient treatment, the risk for further decompensation, and the patient's wishes. Pt advised to follow up with your primary care doctor for re-evaluation and for referral to nephrology for further evaluation of her SHAUN if indicated. Usual and customary return precautions given prior to discharge. Medical Records Medical records reviewed: Yes I reviewed the patient's medical records. Imaging Data Radiologic Study: Radiologist's impression: ?XR PORTABLE CHEST AP CLINICAL HISTORY:? sob TECHNIQUE:? COMPARISON:? CR XR PORTABLE CHEST AP from 03/18/2022 FINDINGS: Portable upright chest at 1443 hours.? The heart is not enlarged.? Right lung is clear. On the left, there is some obscuration of the diaphragm raising the possibility of a basilar infiltrate or left pleural effusion.this finding was not present on prior radiographs of March 2022.? Findings could represent pulmonary consolidation or left pleural effusion. PA and lateral chest suggested for further evaluation if clinically appropriate. XR Chest Exam date and time: 05/14/2022 5:29 PM Age: 62 years old Clinical indication: Other: SOB, R/O pneumonia TECHNIQUE: Imaging protocol: Radiologic exam of the chest. Views: 2 views. COMPARISON: CR XR PORTABLE CHEST AP 05/14/2022 2:22 PM FINDINGS: Lungs:? Mild opacities in the right base may represent atelectasis or pneumonia Pleural spaces: Unremarkable. No pleural effusion. No pneumothorax. Heart/Mediastinum: Unremarkable. No cardiomegaly. Bones/joints: Unremarkable. IMPRESSION: Mild opacities in the right base may represent atelectasis or pneumonia. Lab Data Lab results reviewed: Yes I reviewed the patient's lab results. Labs: Laboratory Tests Range/Units 05/14/22 05/14/22 05/14/22 14:27 14:27 14:27 WBC (4.4-10.8) 10^3/uL 4.21 L RBC (3.93-5.22) 10^6/uL 3.87 L Hgb (11.2-15.7) g/dL 10.5 L Hct (36.0-46.0) % 33.1 L MCV (80-95) fL 86 MCH (27.0-33.0) pg 27.1 MCHC (32.0-36.0) % 31.7 L RDW (11.7-14.6) % 18.3 H Plt Count (130-400) 10^3/uL 182 MPV (8.0-11.0) fL 9.9 Immature Gran % 0.7 Neutrophils % 64.1 Lymphocytes % 23.8 Monocytes % 11.4 Eosinophils % 0.0 Basophils % 0.0 Nucleated RBC % (0.0-0.3) % 0.0 Absolute Neutrophils (1.2-6.7) 10^3/uL 2.70 Absolute Lymphocytes (1.2-3.4) 10^3/uL 1.00 L Absolute Monocytes (0.1-0.8) 10^3/uL 0.48 Absolute Eosinophils (0.0-0.7) 10^3/uL 0.00 Absolute Basophils (0.0-0.2) 10^3/uL 0.00 VBG pH (7.31-7.41) 7.33 VBG pCO2 (41-51) mmHg 50 VBG pO2 mmHg 50 VBG HCO3 (23-28) mmol/L 27 VBG Total CO2 (24-29) mmol/L 25 VBG O2 Saturation % 83 VBG Base Excess (-2-3) mmol/L 1 Sodium (136-145) mmol/L 140 Potassium (3.5-5.1) mmol/L 4.0 Chloride (98-107) mmol/L 102 Carbon Dioxide (21.0-32.0) mmol/L 28.2 Anion Gap (3-11) mmol/L 9.8 BUN (7-18) mg/dL 37 H Creatinine (0.55-1.02) mg/dL 3.1 H Est GFR (CKD-EPI 2020) (mL/min/1.73m2) 16.59 Glucose (74-106) mg/dL 129 H Calcium (8.5-10.1) mg/dL 9.3 Total Bilirubin (0.2-1.0) mg/dL 0.5 AST (15-37) U/L 14 L ALT (14-59) U/L 16 Alkaline Phosphatase (46-116) U/L 81 Total Protein (6.4-8.2) g/dL 7.3 Albumin (3.4-5.0) g/dL 3.7 COVID-19 Source SARS-CoV-2 (PCR) (Negative) Range/Units 05/14/22 05/14/22 05/14/22 14:27 16:44 19:47 WBC (4.4-10.8) 10^3/uL RBC (3.93-5.22) 10^6/uL Hgb (11.2-15.7) g/dL Hct (36.0-46.0) % MCV (80-95) fL MCH (27.0-33.0) pg MCHC (32.0-36.0) % RDW (11.7-14.6) % Plt Count (130-400) 10^3/uL MPV (8.0-11.0) fL Immature Gran % Neutrophils % Lymphocytes % Monocytes % Eosinophils % Basophils % Nucleated RBC % (0.0-0.3) % Absolute Neutrophils (1.2-6.7) 10^3/uL Absolute Lymphocytes (1.2-3.4) 10^3/uL Absolute Monocytes (0.1-0.8) 10^3/uL Absolute Eosinophils (0.0-0.7) 10^3/uL Absolute Basophils (0.0-0.2) 10^3/uL VBG pH (7.31-7.41) VBG pCO2 (41-51) mmHg VBG pO2 mmHg VBG HCO3 (23-28) mmol/L VBG Total CO2 (24-29) mmol/L VBG O2 Saturation % VBG Base Excess (-2-3) mmol/L Sodium (136-145) mmol/L 143 144 Potassium (3.5-5.1) mmol/L 4.2 3.5 Chloride (98-107) mmol/L 105 107 Carbon Dioxide (21.0-32.0) mmol/L 29.8 26.0 Anion Gap (3-11) mmol/L 8.2 11.0 BUN (7-18) mg/dL 37 H 32 H Creatinine (0.55-1.02) mg/dL 2.8 H 2.3 H Est GFR (CKD-EPI 2020) (mL/min/1.73m2) 18.75 23.74 Glucose (74-106) mg/dL 96 114 H Calcium (8.5-10.1) mg/dL 8.8 8.2 L Total Bilirubin (0.2-1.0) mg/dL AST (15-37) U/L ALT (14-59) U/L Alkaline Phosphatase (46-116) U/L Total Protein (6.4-8.2) g/dL Albumin (3.4-5.0) g/dL COVID-19 Source Nasal/Nares SARS-CoV-2 (PCR) (Negative) Negative Sign Out Sign Out Data: Sign Out Comment: pending repeat BMP after fluids; resolved COPD exacerbation, evidence of SHAUN; consider d/c with nephro followup early next week Last updated by Shaka Major MD at 05/14/22 16:23 Discharge Plan Disposition Patient Disposition: HOME Condition: Improving Discharge Details Clinical Impression: Dehydration, Acute kidney injury Primary Care Provider: SABAS GONZALEZ ED Provider: Shawnee Gonzalez Home Meds and New Rx's Prescriptions: Continued fluticasone propion-salmeterol [Advair Diskus] 500-50 mcg/dose blister with device 1 inh inhalation Q12H ipratropium-albuterol 0.5 mg-3 mg(2.5 mg base)/3 mL Solution For Nebulization 3 ml INHALATION TID albuterol sulfate [ProAir HFA] 90 mcg/actuation Hfa Aerosol Inhaler 2 puff INHALATION QID albuterol sulfate 90 mcg/actuation HFA aerosol inhaler 2 puff inhalation Q6H PRN (Reason: shortness of breath or wheezing) Qty: 8.5 0RF Eliquis 5 mg tablet 5 mg PO BID Qty: 60 0RF benztropine 1 mg tablet 1 mg PO QHS Qty: 30 0RF fenofibrate 40 mg tablet 40 mg PO DAILY Qty: 30 0RF fluticasone propion-salmeterol [Advair Diskus] 100-50 mcg/dose blister with device 1 inh inhalation Q12H Qty: 60 0RF lisinopril-hydrochlorothiazide 20-12.5 mg tablet 1 tab PO DAILY Qty: 30 0RF metformin 500 mg tablet 250 mg PO DAILY Qty: 30 0RF olanzapine 20 mg tablet 20 mg PO BID Qty: 60 0RF pantoprazole [Protonix] 40 mg tablet,delayed release (DR/EC) 40 mg PO QHS Qty: 30 0RF ropinirole 2 mg tablet 2 mg PO DAILY Qty: 30 0RF simvastatin 20 mg tablet 20 mg PO QHS Qty: 30 0RF Spiriva with HandiHaler 18 mcg capsule, w/inhalation device 1 cap inhalation DAILY Qty: 30 0RF Rx Instructions: puncture 1 cap using device; one dose = 2 inhalations Trintellix 10 mg tablet 10 mg PO DAILY Qty: 30 0RF prednisone 20 mg tablet See Rx Instructions .ROUTE .COMPLEX Qty: 18 0RF Rx Instructions: Take 3 tabs daily for 3 days, then 2 tabs daily for 3 days, then 1 tab daily for 3 days. Discharge Instructions Instructions: Dehydration (ED), Acute Kidney Injury (DC) Additional Instructions: Your kidney function on blood testing was abnormal and your blood pressure was low in the emergency department today. Your kidney function and blood pressure improved with fluid hydration indicating that these findings may be indicative of dehydration. Drink plenty of fluids and get plenty of rest. Follow-up with your primary care doctor for reevaluation and for referral to nephrology if you have persistent reduced kidney function. Return immediately to the emergency department if you develop any worsening or new concerning symptoms. Discharge Data Discharge Date/Time-TO BE ENTERED AT DEPARTURE: 05/14/22 20:20 Discharge Physician: Shawnee Gonzalez
[2022-05-14 20:11] LABS: BUN 32 mg/dL (7-18); CREATININE 2.3 mg/dL (0.55-1.02); Calcium 8.2 mg/dL (8.5-10.1); Chloride 107 mmol/L (98-107); Estimated GFR 23.74 (mL/min/1.73m2); Glucose 114 mg/dL (74-106); Potassium 3.5 mmol/L (3.5-5.1); Sodium 144 mmol/L (136-145)
== END 2022-05-14 20:20 | disposition home or self-care (01) ==
PROVIDERS: Emergency Medicine; Emergency Provider Physician Assistant; PCP Nurse Practitioner Family
DX: N17.9 Acute kidney failure, unspecified (principal); F20.9 Schizophrenia, unspecified; J44.9 Chronic obstructive pulmonary disease, unspecified; R91.8 Other nonspecific abnormal finding of lung field; I95.9 Hypotension, unspecified; F17.200 Nicotine dependence, unspecified, uncomplicated; Z79.51 Long term (current) use of inhaled steroids; Z20.822 Contact with and (suspected) exposure to COVID-19; Z86.711 Personal history of pulmonary embolism
CPT/HCPCS: 36415; 80048; 80053; 82805; 87635; 96361; 96374; 99284; 71045; 71046; 85025; J1100; J7613; J7644

== ENCOUNTER 2022-05-15 19:42 | Emergency (ER) | payer MEDICAID, SELFPAY ==
[2022-05-15 20:00] VITALS: BP 107/73; PULSE 107; RESP 18; TEMP 36.7
[2022-05-15 20:19] VITALS: RESP 18
[2022-05-15 20:53] LABS: Abs Immature Grans 0.01 10^3/uL (0.0-0.06); Absolute Lymphocyte Count 0.96 10^3/uL (1.2-3.4); Absolute Monocyte Count 0.38 10^3/uL (0.1-0.8); Absolute Neutrophil Count 1.99 10^3/uL (1.2-6.7); HCT 29.3 % (36.0-46.0); HGB 9.7 g/dL (11.2-15.7); Immature Grans % 0.3; Lymphocytes % 28.7; MCH 28.1 pg (27.0-33.0); MCHC 33.1 % (32.0-36.0); MCV 85 fL (80-95); MPV 9.7 fL (8.0-11.0); Monocytes % 11.4; Neutrophils % 59.6; Platelet Count 161 10^3/uL (130-400); RBC 3.45 10^6/uL (3.93-5.22); RDW 18.2 % (11.7-14.6); RDW-SD 55.8 fL; WBC 3.34 10^3/uL (4.4-10.8)
[2022-05-15 21:19] LABS: ALT 14 U/L (14-59); AST 13 U/L (15-37); Albumin 3.7 g/dL (3.4-5.0); Alkaline Phosphatase 72 U/L (46-116); Anion Gap 7.3 mmol/L (3-11); BUN 21 mg/dL (7-18); Bilirubin, Total 0.3 mg/dL (0.2-1.0); CO2 31.7 mmol/L (21.0-32.0); CREATININE 1.4 mg/dL (0.55-1.02); Calcium 9.3 mg/dL (8.5-10.1); Chloride 105 mmol/L (98-107); Estimated GFR 43.07 (mL/min/1.73m2); Glucose 109 mg/dL (74-106); Magnesium 1.4 mg/dL (1.8-2.4); Potassium 3.7 mmol/L (3.5-5.1); Sodium 144 mmol/L (136-145); Total Protein 6.7 g/dL (6.4-8.2)
[2022-05-15] MEDS: Normal Saline 1,000 ML 500 ML IV (21:41)
[2022-05-15] MEDS: Albuterol 2.5 MG/3 ML INH SOLN VIAL UPD (21:44)
[2022-05-15 21:52] LABS: Bilirubin Negative (Negative); Blood Negative (Negative); Clarity Clear (Clear); Glucose Negative (Negative); Ketones Negative (Negative); Leukocyte Esterase Small (Negative); Nitrite Negative (Negative); Specific Gravity 1.015 (1.005-1.025); Urobilinogen 0.2 EU/dL (Up TO 0.2); pH 5.5 (5-8)
[2022-05-15 22:04] LABS: Epithelial Cells Many HPF (Negative)
[2022-05-15 22:05] LABS: Bacteria Rare HPF (Negative); C & S Indicated? No/Sq. Contamination; Crystals Negative HPF (Negative); Mucus Negative (Negative)
[2022-05-15] MEDS: Magnesium Oxide 400 MG TAB PO (22:39)
--- NOTE | 2022-05-15 23:07 | ED.GENADUL_ITS ---
Discharge Plan Disposition Patient Disposition: HOME Condition: Stable Discharge Details Clinical Impression: Acute kidney injury, Dehydration Primary Care Provider: SABAS GONZALEZ ED Provider: Zac Trujillo Home Meds and New Rx's Prescriptions: Continued fluticasone propion-salmeterol [Advair Diskus] 500-50 mcg/dose blister with device 1 inh inhalation Q12H ipratropium-albuterol 0.5 mg-3 mg(2.5 mg base)/3 mL Solution For Nebulization 3 ml INHALATION TID albuterol sulfate [ProAir HFA] 90 mcg/actuation Hfa Aerosol Inhaler 2 puff INHALATION QID albuterol sulfate 90 mcg/actuation HFA aerosol inhaler 2 puff inhalation Q6H PRN (Reason: shortness of breath or wheezing) Qty: 8.5 0RF Eliquis 5 mg tablet 5 mg PO BID Qty: 60 0RF benztropine 1 mg tablet 1 mg PO QHS Qty: 30 0RF fenofibrate 40 mg tablet 40 mg PO DAILY Qty: 30 0RF fluticasone propion-salmeterol [Advair Diskus] 100-50 mcg/dose blister with device 1 inh inhalation Q12H Qty: 60 0RF lisinopril-hydrochlorothiazide 20-12.5 mg tablet 1 tab PO DAILY Qty: 30 0RF metformin 500 mg tablet 250 mg PO DAILY Qty: 30 0RF olanzapine 20 mg tablet 20 mg PO BID Qty: 60 0RF pantoprazole [Protonix] 40 mg tablet,delayed release (DR/EC) 40 mg PO QHS Qty: 30 0RF ropinirole 2 mg tablet 2 mg PO DAILY Qty: 30 0RF simvastatin 20 mg tablet 20 mg PO QHS Qty: 30 0RF Spiriva with HandiHaler 18 mcg capsule, w/inhalation device 1 cap inhalation DAILY Qty: 30 0RF Rx Instructions: puncture 1 cap using device; one dose = 2 inhalations Trintellix 10 mg tablet 10 mg PO DAILY Qty: 30 0RF prednisone 20 mg tablet See Rx Instructions .ROUTE .COMPLEX Qty: 18 0RF Rx Instructions: Take 3 tabs daily for 3 days, then 2 tabs daily for 3 days, then 1 tab daily for 3 days. Discharge Instructions Instructions: Dehydration (ED) Additional Instructions: Continue to stay well-hydrated and follow-up with your primary care provider on Tuesday as discussed. If you have any new or significant worsening of your symptoms return to the emergency department otherwise take all of your medication as prescribed. Referrals: SABAS GONZALEZ NP [Primary Care Provider] - 05/18/22 Medical Decision Making Patient presenting to the emergency department for chief complaint of dehydration and kidney issues. Patient was seen in the emergency department yesterday and diagnosed with acute kidney injury and dehydration. Patient was stabilized and discharged but in discussion with her primary care provider today was recommended to come back to the emergency department. Patient states continued lightheadedness with position changes and general malaise but otherwise states some improvement versus similar symptoms that she had yesterday. Physical exam shows diffuse wheezing which I feel secondary to her COPD that is oxygen dependent on 2 L. Exam is otherwise unremarkable. We will plan on rechecking patient's labs and giving fluid bolus pending results after reading previous notes. Review of CBC shows a continued anemia, slightly low WBC count at 3.3, and slightly low lymphocytes at 0.96. CMP shows significant improvement with today having BUN of 21, creatinine 1.4, and GFR now at 43. Patient's magnesium is 1.4 so we will give oral repletion. Patient's urinalysis shows a contaminated specimen. Given that patient has no urinary symptoms will not treat patient's findings at this time. Did further review patient's findings from yesterday and her chest x-ray showed questionable infiltrates. Patient denies any worsening respiratory symptoms so again I do not feel that this needs to be treated but will have patient monitor for worsening respiratory symptoms and return if needed. Reassessed patient and she does state overall improvement. I do feel that she is safe for discharge at this time. Did attempt to contact patient's primary care provider who recommended she come to the emergency department but was unable to contact them. Will discharge patient with encouraging her to continue to hydrate and return for any new or worsening symptoms. After discussion of diagnosis and plan of care patient has no further needs, questions, or concerns and states clear understanding to return to the emergency department for any worsening symptoms. Before patient discharge I did speak with patient's primary care provider and reviewed all labs, plan is for patient to follow-up with primary care on Tuesday. HPI General Mode of arrival: ambulatory . Date/Time Provider Initiated Documentation: 05/15/22 19:50 . Limitations to Documentation: no limitations . Information obtained by: patient, RN notes reviewed and old records reviewed . History of Present Illness 62 year old F presents to the emergency department with the chief complaint of Acute kidney issues, described as similar to prior episodes, Quality is described as other (Denies pain or discomfort), Patient started experiencing this week(s) and it has been constant and other (improving). other things that improve symptom(s), (Hydration) No e xacerbating factors reported . Patient notes no other symptoms.. Patient did receive the following treatments prior to arrival, none Related Data Home Medications Medication Instructions Recorded Confirmed albuterol sulfate 90 mcg/actuation 2 puff inhalation Q6H PRN 03/18/22 aerosol inhaler shortness of breath or wheezing #8.5 grams albuterol sulfate 90 mcg/actuation 2 puff inhalation QID 03/18/22 03/18/22 aerosol inhaler (ProAir HFA) apixaban 5 mg tablet (Eliquis) 5 mg PO BID #60 tabs 03/18/22 benztropine 1 mg tablet 1 mg PO QHS #30 tabs 03/18/22 fenofibrate 40 mg tablet 40 mg PO DAILY #30 tabs 03/18/22 fluticasone 100 mcg-salmeterol 50 1 inh inhalation Q12H #60 ea 03/18/22 mcg/dose blistr powdr for inhalation (Advair Diskus) ipratropium 0.5 mg-albuterol 3 mg 3 ml inhalation TID 03/18/22 03/18/22 (2.5 mg base)/3 mL nebulization soln lisinopril 20 1 tab PO DAILY #30 tabs 03/18/22 mg-hydrochlorothiazide 12.5 mg tablet metformin 500 mg tablet 250 mg PO DAILY #30 tabs 03/18/22 olanzapine 20 mg tablet 20 mg PO BID #60 tabs 03/18/22 pantoprazole 40 mg tablet,delayed 40 mg PO QHS #30 tabs 03/18/22 release (Protonix) prednisone 20 mg tablet See Rx Instructions .Route 03/18/22 .COMPLEX #18 tabs ropinirole 2 mg tablet 2 mg PO DAILY #30 tabs 03/18/22 simvastatin 20 mg tablet 20 mg PO QHS #30 tabs 03/18/22 tiotropium bromide 18 mcg capsule 1 cap inhalation DAILY #30 03/18/22 with inhalation device (Spiriva inhalations with HandiHaler) vortioxetine 10 mg tablet 10 mg PO DAILY #30 tabs 03/18/22 (Trintellix) fluticasone 500 mcg-salmeterol 50 1 inh inhalation Q12H 04/22/22 mcg/dose blistr powdr for inhalation (Advair Diskus) Previous Rx's Medication Instructions Recorded albuterol sulfate 90 mcg/actuation 2 puff inhalation Q6H PRN 03/18/22 aerosol inhaler shortness of breath or wheezing #8.5 grams apixaban 5 mg tablet (Eliquis) 5 mg PO BID #60 tabs 03/18/22 benztropine 1 mg tablet 1 mg PO QHS #30 tabs 03/18/22 fenofibrate 40 mg tablet 40 mg PO DAILY #30 tabs 03/18/22 fluticasone 100 mcg-salmeterol 50 1 inh inhalation Q12H #60 ea 03/18/22 mcg/dose blistr powdr for inhalation (Advair Diskus) lisinopril 20 1 tab PO DAILY #30 tabs 03/18/22 mg-hydrochlorothiazide 12.5 mg tablet metformin 500 mg tablet 250 mg PO DAILY #30 tabs 03/18/22 olanzapine 20 mg tablet 20 mg PO BID #60 tabs 03/18/22 pantoprazole 40 mg tablet,delayed 40 mg PO QHS #30 tabs 03/18/22 release (Protonix) prednisone 20 mg tablet See Rx Instructions .Route 03/18/22 .COMPLEX #18 tabs ropinirole 2 mg tablet 2 mg PO DAILY #30 tabs 03/18/22 simvastatin 20 mg tablet 20 mg PO QHS #30 tabs 03/18/22 tiotropium bromide 18 mcg capsule 1 cap inhalation DAILY #30 03/18/22 with inhalation device (Spiriva inhalations with HandiHaler) vortioxetine 10 mg tablet 10 mg PO DAILY #30 tabs 03/18/22 (Trintellix) Allergies Allergy/AdvReac Type Severity Reaction Status Date / Time amoxicillin [From Augmentin] Allergy Intermediate Verified 04/20/22 12:43 clavulanic acid Allergy Intermediate Verified 04/20/22 12:43 [From Augmentin] prednisone Allergy Intermediate Verified 04/20/22 12:43 General Stated Complaint: GenMedical SAMUEL: 3 Review of Systems Constitutional Constitutional: Denies chills, Denies fever(s), Denies headache(s), Denies malaise and Denies night sweats Eyes Eyes: Denies change in vision ENT Ears, Nose, Mouth, and Throat: Denies headache(s) Cardiovascular Cardiovascular: Denies chest pain, Denies syncope, Reports lightheadedness (Improved from yesterday) and Denies dyspnea (No change from baseline COPD) Respiratory Respiratory: Denies change in phlegm color, Denies chest congestion, Denies cough and Denies dyspnea (No change from baseline COPD) Gastrointestinal Gastrointestinal: Denies abdominal pain, Denies diarrhea and Denies vomiting Genitourinary Genitourinary: Denies dysuria, Denies urinary incontinence, Denies urinary hesitancy, Denies urinary urgency and Denies other (Decreased urination) Musculoskeletal Musculoskeletal: Denies back pain Integumentary/Breasts Skin/Breast: Denies rash Neurologic Neurologic: Denies syncope and Denies headache(s) Psychiatric Psychiatric: Reports anxiety (About kidney issues) [facility] All Active Problems (Updated 05/15/22 @ 23:12 by Zac Trujillo NP) Dehydration (Acute) Acute kidney injury (Acute) Alcohol abuse (Chronic) Substance abuse (Acute) Anxiety and depression (Chronic) GERD (gastroesophageal reflux disease) (Chronic) Essential hypertension (Acute) Hyperlipidemia (Acute) Tobacco abuse (Acute) Achilles tendinitis (Acute) Obesity (Chronic) Dementia without behavioral disturbance (Acute) Restless legs syndrome (Acute) Hearing loss (Acute) Insomnia, transient (Acute) Chronic atrial fibrillation (Acute) Asymptomatic postmenopausal status (Acute) Angina pectoris (Chronic) Anemia (Chronic) Diabetes mellitus with cataract (Acute) Age related osteoporosis (Acute) Abnormal EKG (Acute) Schizophrenia (Chronic) Saddle pulmonary embolus (Acute) Medical History (Updated 05/15/22 @ 23:12 by Zac Trujillo NP) Asthma COPD (chronic obstructive pulmonary disease) Hepatitis Pulmonary embolism Surgical History History of ankle surgery History of bilateral tubal ligation History of hysterectomy Hx of cholecystectomy Family History Father History of blood clots Emphysema lung Sister Diabetes Mother Glaucoma Social History Smoking/Tobacco Use Status: Current every day Smoking risk assessment performed?: Yes Alcohol Intake: never Substance use type: does not use Do you feel safe at home: Yes Do you feel safe in your relationship?: Yes Exam Const General: cooperative and no acute distress Orientation: alert, awake and oriented x3 Resp Effort & Inspection: normal respiratory effort and able to speak in complete sentences Auscultation: diminished lung sounds bilaterally in the lower lung hart and wheezes scattered wheezes Cardio Rate: regular rate Rhythm: regular rhythm Heart Sounds: S1 normal and S2 normal GI Palpation: nontender Back/Spine/Pelvis Back: no CVA tenderness Neuro General: patient alert, patient awake and patient oriented x3 Extrem General: capillary refill normal Course Vital Signs Vital signs: Vital Signs Temperature 36.7 C 05/15/22 20:00 Pulse 107 H 05/15/22 20:00 Respiratory Rate 18 05/15/22 20:00 Blood Pressure 107/73 05/15/22 20:00 Temperature 36.7 C 05/15/22 20:00 Temperature Source Oral 05/15/22 20:00 Pulse 107 H 05/15/22 20:00 Respiratory Rate 18 05/15/22 20:19 Respiratory Effort 05/15/22 20:19 Respiratory Depth Normal 05/15/22 20:19 Respiratory Pattern Normal 05/15/22 20:19 Blood Pressure 107/73 05/15/22 20:00 Blood Pressure Position Sitting 05/15/22 20:00 Oxygen Delivery Method Nasal Cannula 05/15/22 20:00 Oxygen Flow Rate 2 05/15/22 20:00 Pain Level 5 05/15/22 20:00 Comment 05/15/22 20:00 Lab/Test Results Lab/Test Results: Laboratory Tests Range/Units 05/15/22 05/15/22 05/15/22 20:48 20:48 21:36 WBC (4.4-10.8) 10^3/uL 3.34 L RBC (3.93-5.22) 10^6/uL 3.45 L Hgb (11.2-15.7) g/dL 9.7 L Hct (36.0-46.0) % 29.3 L MCV (80-95) fL 85 MCH (27.0-33.0) pg 28.1 MCHC (32.0-36.0) % 33.1 RDW (11.7-14.6) % 18.2 H Plt Count (130-400) 10^3/uL 161 MPV (8.0-11.0) fL 9.7 Immature Gran % 0.3 Neutrophils % 59.6 Lymphocytes % 28.7 Monocytes % 11.4 Eosinophils % 0.0 Basophils % 0.0 Nucleated RBC % (0.0-0.3) % 0.0 Absolute Neutrophils (1.2-6.7) 10^3/uL 1.99 Absolute Lymphocytes (1.2-3.4) 10^3/uL 0.96 L Absolute Monocytes (0.1-0.8) 10^3/uL 0.38 Absolute Eosinophils (0.0-0.7) 10^3/uL 0.00 Absolute Basophils (0.0-0.2) 10^3/uL 0.00 Sodium (136-145) mmol/L 144 Potassium (3.5-5.1) mmol/L 3.7 Chloride (98-107) mmol/L 105 Carbon Dioxide (21.0-32.0) mmol/L 31.7 Anion Gap (3-11) mmol/L 7.3 BUN (7-18) mg/dL 21 H Creatinine (0.55-1.02) mg/dL 1.4 H Est GFR (CKD-EPI 2020) (mL/min/1.73m2) 43.07 Glucose (74-106) mg/dL 109 H Calcium (8.5-10.1) mg/dL 9.3 Magnesium (1.8-2.4) mg/dL 1.4 L Total Bilirubin (0.2-1.0) mg/dL 0.3 AST (15-37) U/L 13 L ALT (14-59) U/L 14 Alkaline Phosphatase (46-116) U/L 72 Total Protein (6.4-8.2) g/dL 6.7 Albumin (3.4-5.0) g/dL 3.7 Urine Color (Yellow) Yellow Urine Clarity (Clear) Clear Urine pH (5-8) 5.5 Ur Specific [place] (1.005-1.025) 1.015 Urine Protein (Negative) mg/dL Negative Urine Ketones (Negative) mg/dL Negative Urine Blood (Negative) Negative Urine Nitrite (Negative) Negative Urine Bilirubin (Negative) Negative Urine Urobilinogen (Up TO 0.2) EU/dL 0.2 Ur Leukocyte Esterase (Negative) Small H Urine RBC (0-2) HPF 3-5 H Urine WBC (0-5) HPF 10-20 H Ur Epithelial Cells (Negative) HPF Many Urine Crystals (Negative) HPF Negative Urine Bacteria (Negative) HPF Rare Urine Mucus (Negative) Negative Urine Other (Negative) Many Transitional Ur Culture Indicated? No/Sq. Contamination Urine Glucose (Negative) mg/dL Negative
== END 2022-05-16 08:33 | disposition home or self-care (01) ==
PROVIDERS: Emergency Provider Nurse Practitioner Family; PCP Nurse Practitioner Family
DX: N17.9 Acute kidney failure, unspecified (principal); E86.0 Dehydration; J44.9 Chronic obstructive pulmonary disease, unspecified; D64.9 Anemia, unspecified; F17.200 Nicotine dependence, unspecified, uncomplicated; Z79.51 Long term (current) use of inhaled steroids
CPT/HCPCS: 80053; 96360; 96361; 99284; 81003; 81015; 83735; 85025; J7613

== ENCOUNTER 2022-05-20 14:02 | Outpatient (REF) | payer MEDICAID, SELFPAY ==
[2022-05-20 15:26] LABS: Abs Immature Grans 0.03 10^3/uL (0.0-0.06); Absolute Lymphocyte Count 0.87 10^3/uL (1.2-3.4); Absolute Monocyte Count 0.36 10^3/uL (0.1-0.8); Absolute Neutrophil Count 3.41 10^3/uL (1.2-6.7); HCT 33.3 % (36.0-46.0); HGB 10.6 g/dL (11.2-15.7); Immature Grans % 0.6; Lymphocytes % 18.6; MCH 27.5 pg (27.0-33.0); MCHC 31.8 % (32.0-36.0); MCV 87 fL (80-95); MPV 10.2 fL (8.0-11.0); Monocytes % 7.7; Neutrophils % 73.1; Platelet Count 167 10^3/uL (130-400); RBC 3.85 10^6/uL (3.93-5.22); RDW 17.8 % (11.7-14.6); RDW-SD 55.8 fL; WBC 4.67 10^3/uL (4.4-10.8)
[2022-05-20 16:03] LABS: ALT 20 U/L (14-59); AST 16 U/L (15-37); Albumin 3.7 g/dL (3.4-5.0); Alkaline Phosphatase 67 U/L (46-116); Anion Gap 13.1 mmol/L (3-11); BUN 16 mg/dL (7-18); Bilirubin, Total 0.4 mg/dL (0.2-1.0); CO2 25.9 mmol/L (21.0-32.0); CREATININE 1.3 mg/dL (0.55-1.02); Calcium 9.5 mg/dL (8.5-10.1); Chloride 99 mmol/L (98-107); Estimated GFR 47.08 (mL/min/1.73m2); Glucose 158 mg/dL (74-106); Potassium 3.8 mmol/L (3.5-5.1); Sodium 138 mmol/L (136-145); Total Protein 7.4 g/dL (6.4-8.2)
== END 2022-05-20 14:03 | disposition home or self-care (01) ==
LOC: NCHCN 14:02
PROVIDERS: PCP Nurse Practitioner Family; Visit Provider Nurse Practitioner Family
DX: N17.9 Acute kidney failure, unspecified (principal); Z51.81 Encounter for therapeutic drug level monitoring
CPT/HCPCS: 80053; 85025

== ENCOUNTER 2022-05-27 13:59 | Emergency (ER) | payer MEDICAID, SELFPAY ==
[2022-05-27] VITALS (32 sets, daily range): BP systolic 58–113; BP diastolic 35–94; PULSE 72–141; RESP 14–30; TEMP 36.6–36.7; O2SAT 97–100
--- NOTE | 2022-05-27 14:00 | RT.EKG_ITS ---
APPROVED REPORT Exam: Resting ECG Reason for Exam: abnormal vital signs Patient Location: E HR:87 bpm ECG Measurements Heart Rate 87 AXIS TX 156 P 6 QRSd 89 QRS 88 QT 359 T 27 QTc 433 Conclusion Sinus rhythm...normal P axis, V-rate 60- 99 Low voltage, precordial leads...precordial leads <1.0mV. Sinus. Normal axis. No STEMI. I have reviewed and interpreted ECG and agree with software generated interpretation.
--- NOTE | 2022-05-27 14:00 | ED.GENADUL_ITS ---
Discharge Plan Disposition Patient Disposition: HOME Condition: Improving Discharge Details Clinical Impression: Hypotension, Acute kidney injury Primary Care Provider: SABAS GONZALEZ ED Provider: Shawnee Gonzalez Home Meds and New Rx's Prescriptions: Continued fluticasone propion-salmeterol [Advair Diskus] 500-50 mcg/dose blister with device 1 inh inhalation Q12H ipratropium-albuterol 0.5 mg-3 mg(2.5 mg base)/3 mL Solution For Nebulization 3 ml INHALATION TID albuterol sulfate [ProAir HFA] 90 mcg/actuation Hfa Aerosol Inhaler 2 puff INHALATION QID Eliquis 5 mg tablet 5 mg PO BID Qty: 60 0RF benztropine 1 mg tablet 1 mg PO QHS Qty: 30 0RF pantoprazole [Protonix] 40 mg tablet,delayed release (DR/EC) 40 mg PO QHS Qty: 30 0RF ropinirole 2 mg tablet 2 mg PO DAILY Qty: 30 0RF simvastatin 20 mg tablet 20 mg PO QHS Qty: 30 0RF Spiriva with HandiHaler 18 mcg capsule, w/inhalation device 1 cap inhalation DAILY Qty: 30 0RF Rx Instructions: puncture 1 cap using device; one dose = 2 inhalations hydroxyzine HCl 25 mg tablet 1 - 2 tab PO Q6H PRN PRN Label Comments: TAKE 1 TO 2 TABLETS BY MOUTH EVERY 6 HOURS NEEDED FOR 30 DAYS metformin 500 mg tablet 0.5 tab PO DAILY Label Comments: Take 1/2 tablet by mouth once a day Discontinued lisinopril-hydrochlorothiazide 10-12.5 mg tablet 1 tab PO DAILY Discharge Instructions Instructions: Acute Kidney Injury (DC), Hypotension (ED) Additional Instructions: Stop taking your blood pressure medication lisinopril/hydrochlorothiazide as this may be contributing to your low blood pressure and acute kidney injury. Follow-up with your primary care doctor's office early next week for recheck of your blood pressure and a repeat blood test to assess your kidney function. Return immediately to the emergency department if you develop any worsening or new concerning symptoms. Discharge Data Discharge Date/Time-TO BE ENTERED AT DEPARTURE: 05/27/22 19:15 Discharge Physician: Shawnee Gonzalez Medical Decision Making [id number] -- 62yo F with a history of COPD chronically on 3 L nasal cannula oxygen, hypertension, hyperlipidemia, chronic atrial fibrillation, diabetes, schizophrenia, pulmonary embolism on Eliquis who presents for hypotension from the PCP office today. Patient was at the PCP office for lightheadedness that occurs upon standing for the past few days. Review of records note that patient had hypotension when here in the ED earlier this month for a COPD exacerbation which was fluid responsive along with SHAUN which also improved with fluids. Blood pressure 80s/57 on arrival. Now 92/47. Patient currently has no acute complaints. Will obtain screening labs, give IV fluids and continue to monitor. Considering her recent SHAUN and persistent hypotension, will obtain CT chest abdomen pelvis for further evaluation. 154 --labs reviewed. White blood cell count 3 and hemoglobin 9.9 which appears close to baseline. Creatinine uptrending again now 2.6, had been 3.5 earlier month but down trended back down to 1.3. GFR 20. Magnesium 1.7. Troponin negative. Will change CT abdomen pelvis to without contrast. 1829 --CT abdomen pelvis negative for acute findings. Repeat bmp after 2L notes only slight improvement of creatinine down to 2.2. Her blood pressure is significantly improved. 113/49. Patient is requesting to go home. Case discussed with patient's PCP Sabas Gonzalez --discussed that as her blood pressure and creatinine appears to be improving with IV hydration, suspect could be secondary to dehydration but also consider NADEEM induced SHAUN. We will hold her blood pressure medication in the setting of hypotension and SHAUN. Plan will be for PCP office to reassess patient early next week for reassessment of her blood pressure and BMP after holding NADEEM-I for a few day Usual and customary return precautions given prior to discharge.. Medical Records Medical records reviewed: Yes I reviewed the patient's medical records. Imaging Data Radiologic Study: Radiologist's impression: CT Chest Without Contrast; Diagnostic Exam date and time: 05/27/2022 4:09 PM Age: 62 years old Clinical indication: Other: Shaun, hypotension, R/O renal mass, bleeding, pna TECHNIQUE: Imaging protocol: Diagnostic computed tomography of the chest without contrast. COMPARISON: CR XR CHEST 2V PA LATERAL 05/14/2022 5:29 PM FINDINGS: Lungs: Moderate centrilobular emphysematous changes are present. No suspicious parenchymal lung nodule. Bilateral [id number]-[id number] bronchiectasis worse within the bases. Pleural spaces: Unremarkable. No pneumothorax. No pleural effusion. Heart: No significant coronary artery calcifications. No cardiomegaly. No pericardial effusion. Lymph nodes: Unremarkable. No enlarged lymph nodes. Vasculature: Unremarkable. No aortic aneurysm.? Bones/joints: Unremarkable. No acute fracture. Soft tissues: Unremarkable. IMPRESSION: 1. No evidence of acute cardiopulmonary process. 2. Bilateral [id number]-dk-yuywtdcv bronchiectasis worse within the bases. CT Abdomen And Pelvis Without Contrast Exam date and time: 05/27/2022 4:09 PM Age: 62 years old Clinical indication: Other: Shaun, hypotension, R/O renal mass, bleeding, pna TECHNIQUE: Imaging protocol: Computed tomography of the abdomen and pelvis without contrast. COMPARISON: CR XR CHEST 2V PA LATERAL 05/14/2022 5:29 PM FINDINGS: Liver: Normal. No mass. Gallbladder and bile ducts: There has been a cholecystectomy. Pancreas: Normal. No ductal dilation. Spleen: Normal. No splenomegaly. Adrenal glands: Normal. No mass. Kidneys and ureters: Normal. No hydronephrosis. Stomach and bowel: Unremarkable. No obstruction. No mucosal thickening. Appendix: No evidence of appendicitis. Intraperitoneal space: Unremarkable. No free air. No significant fluid collection. Vasculature: The vasculature demonstrates diffuse mild atherosclerotic calcification. Lymph nodes: Unremarkable. No enlarged lymph nodes. Urinary bladder: The bladder is moderately distended. Reproductive: Unremarkable as visualized. Bones/joints: Unremarkable. No acute fracture. Soft tissues: Small umbilical hernia containing fat. IMPRESSION: 1. No evidence of acute abdominal or pelvic process.? No evidence of renal mass on this unenhanced study. 2. Small umbilical hernia containing fat. Lab Data Lab results reviewed: Yes I reviewed the patient's lab results. Labs: Laboratory Tests Range/Units 05/27/22 05/27/22 05/27/22 15:10 15:10 16:32 WBC (4.4-10.8) 10^3/uL 3.71 L RBC (3.93-5.22) 10^6/uL 3.52 L Hgb (11.2-15.7) g/dL 9.9 L Hct (36.0-46.0) % 30.5 L MCV (80-95) fL 87 MCH (27.0-33.0) pg 28.1 MCHC (32.0-36.0) % 32.5 RDW (11.7-14.6) % 18.4 H Plt Count (130-400) 10^3/uL 185 MPV (8.0-11.0) fL 9.7 Immature Gran % 0.5 Neutrophils % 72.0 Lymphocytes % 19.1 Monocytes % 8.4 Eosinophils % 0.0 Basophils % 0.0 Nucleated RBC % (0.0-0.3) % 0.0 Absolute Neutrophils (1.2-6.7) 10^3/uL 2.67 Absolute Lymphocytes (1.2-3.4) 10^3/uL 0.71 L Absolute Monocytes (0.1-0.8) 10^3/uL 0.31 Absolute Eosinophils (0.0-0.7) 10^3/uL 0.00 Absolute Basophils (0.0-0.2) 10^3/uL 0.00 Sodium (136-145) mmol/L 134 L Potassium (3.5-5.1) mmol/L 4.8 Chloride (98-107) mmol/L 97 L Carbon Dioxide (21.0-32.0) mmol/L 32.1 H Anion Gap (3-11) mmol/L 4.9 BUN (7-18) mg/dL 32 H Creatinine (0.55-1.02) mg/dL 2.6 H Est GFR (CKD-EPI 2020) (mL/min/1.73m2) 20.49 Glucose (74-106) mg/dL 101 Calcium (8.5-10.1) mg/dL 9.4 Magnesium (1.8-2.4) mg/dL 1.7 L Total Bilirubin (0.2-1.0) mg/dL 0.4 AST (15-37) U/L 14 L ALT (14-59) U/L 17 Alkaline Phosphatase (46-116) U/L 87 Troponin I (<or=60) ng/L < 50 Total Protein (6.4-8.2) g/dL 7.1 Albumin (3.4-5.0) g/dL 3.6 Urine Color (Yellow) Yellow Urine Clarity (Clear) Clear Urine pH (5-8) 6.0 Ur Specific [place] (1.005-1.025) 1.015 Urine Protein (Negative) mg/dL Negative Urine Ketones (Negative) mg/dL Negative Urine Blood (Negative) Negative Urine Nitrite (Negative) Negative Urine Bilirubin (Negative) Negative Urine Urobilinogen (Up TO 0.2) EU/dL 0.2 Ur Leukocyte Esterase (Negative) Negative Urine Glucose (Negative) mg/dL Negative Range/Units 05/27/22 17:30 WBC (4.4-10.8) 10^3/uL RBC (3.93-5.22) 10^6/uL Hgb (11.2-15.7) g/dL Hct (36.0-46.0) % MCV (80-95) fL MCH (27.0-33.0) pg MCHC (32.0-36.0) % RDW (11.7-14.6) % Plt Count (130-400) 10^3/uL MPV (8.0-11.0) fL Immature Gran % Neutrophils % Lymphocytes % Monocytes % Eosinophils % Basophils % Nucleated RBC % (0.0-0.3) % Absolute Neutrophils (1.2-6.7) 10^3/uL Absolute Lymphocytes (1.2-3.4) 10^3/uL Absolute Monocytes (0.1-0.8) 10^3/uL Absolute Eosinophils (0.0-0.7) 10^3/uL Absolute Basophils (0.0-0.2) 10^3/uL Sodium (136-145) mmol/L 139 Potassium (3.5-5.1) mmol/L 4.5 Chloride (98-107) mmol/L 104 Carbon Dioxide (21.0-32.0) mmol/L 31.2 Anion Gap (3-11) mmol/L 3.8 BUN (7-18) mg/dL 29 H Creatinine (0.55-1.02) mg/dL 2.2 H Est GFR (CKD-EPI 2020) (mL/min/1.73m2) 25.04 Glucose (74-106) mg/dL 85 Calcium (8.5-10.1) mg/dL 8.2 L Magnesium (1.8-2.4) mg/dL Total Bilirubin (0.2-1.0) mg/dL AST (15-37) U/L ALT (14-59) U/L Alkaline Phosphatase (46-116) U/L Troponin I (<or=60) ng/L Total Protein (6.4-8.2) g/dL Albumin (3.4-5.0) g/dL Urine Color (Yellow) Urine Clarity (Clear) Urine pH (5-8) Ur Specific [place] (1.005-1.025) Urine Protein (Negative) mg/dL Urine Ketones (Negative) mg/dL Urine Blood (Negative) Urine Nitrite (Negative) Urine Bilirubin (Negative) Urine Urobilinogen (Up TO 0.2) EU/dL Ur Leukocyte Esterase (Negative) Urine Glucose (Negative) mg/dL ECG Data Attestation: I personally reviewed and interpreted this ECG (s) as follows: Interpretation: rate of 87, sinus, normal axis, no stemi. HPI General Mode of arrival: ambulatory . Date/Time Provider Initiated Documentation: 05/27/22 14:16 . Limitations to Documentation: no limitations . Information obtained by: patient . HPI Narrative: Patient is a 62-year-old female with a history of COPD and chronic tobacco smoker on 2 L nasal cannula chronically, chronic atrial fibrillation, hypertension, hyperlipidemia, diabetes, GERD, anxiety, depression, schizophrenia and pulmonary embolism on Eliquis who presents for hypotension from the PCP office today. Patient states she was there for evaluation of lightheadedness that is mainly been occurring with getting up and walking around for the past few days. Patient denies any symptoms at present states she mainly feels lightheaded upon standing. She states she was restarted on her blood pressure medication over the summer after moving from [place] and being off it for some time. She states her doctor's office was planning to decrease her blood pre ssure medication today on this visit. She states she took her normal blood pressure medication this morning. She states she does not drink much fluids and states she last ate last night. She denies any fever, headache, neck pain, sore throat, chest pain, shortness of breath, abdominal pain, vomiting, diarrhea or urinary symptoms. Related Data Home Medications Medication Instructions Recorded Confirmed albuterol sulfate 90 mcg/actuation 2 puff inhalation QID 03/18/22 05/27/22 aerosol inhaler (ProAir HFA) apixaban 5 mg tablet (Eliquis) 5 mg PO BID #60 tabs 03/18/22 05/27/22 benztropine 1 mg tablet 1 mg PO QHS #30 tabs 03/18/22 05/27/22 ipratropium 0.5 mg-albuterol 3 mg 3 ml inhalation TID 03/18/22 05/27/22 (2.5 mg base)/3 mL nebulization soln pantoprazole 40 mg tablet,delayed 40 mg PO QHS #30 tabs 03/18/22 05/27/22 release (Protonix) ropinirole 2 mg tablet 2 mg PO DAILY #30 tabs 03/18/22 05/27/22 simvastatin 20 mg tablet 20 mg PO QHS #30 tabs 03/18/22 05/27/22 tiotropium bromide 18 mcg capsule 1 cap inhalation DAILY #30 03/18/22 05/27/22 with inhalation device (Spiriva inhalations with HandiHaler) fluticasone 500 mcg-salmeterol 50 1 inh inhalation Q12H 04/22/22 05/27/22 mcg/dose blistr powdr for inhalation (Advair Diskus) hydroxyzine HCl 25 mg tablet 1 - 2 tab PO Q6H PRN PRN 05/27/22 05/27/22 metformin 500 mg tablet 0.5 tab PO DAILY 05/27/22 05/27/22 Previous Rx's Medication Instructions Recorded apixaban 5 mg tablet (Eliquis) 5 mg PO BID #60 tabs 03/18/22 benztropine 1 mg tablet 1 mg PO QHS #30 tabs 03/18/22 pantoprazole 40 mg tablet,delayed 40 mg PO QHS #30 tabs 03/18/22 release (Protonix) ropinirole 2 mg tablet 2 mg PO DAILY #30 tabs 03/18/22 simvastatin 20 mg tablet 20 mg PO QHS #30 tabs 03/18/22 tiotropium bromide 18 mcg capsule 1 cap inhalation DAILY #30 03/18/22 with inhalation device (Spiriva inhalations with HandiHaler) Allergies Allergy/AdvReac Type Severity Reaction Status Date / Time amoxicillin [From Augmentin] Allergy Intermediate Verified 05/27/22 18:26 clavulanic acid Allergy Intermediate Verified 05/27/22 18:26 [From Augmentin] prednisone Allergy Intermediate Verified 05/27/22 18:26 General SAMUEL: 3 Review of Systems All systems reviewed & are unremarkable except as noted in HPI and below Constitutional Constitutional: Reports as per HPI, Denies chills and Denies fever(s) Eyes Eyes: Denies blurry vision ENT Ears, Nose, Mouth, and Throat: Reports dizziness, Denies sore throat and Denies throat swelling Cardiovascular Cardiovascular: Denies chest pain and Denies dyspnea Respiratory Respiratory: Denies cough and Denies dyspnea Gastrointestinal Gastrointestinal: Denies abdominal pain, Denies diarrhea and Denies vomiting Genitourinary Genitourinary: Denies hematuria and Denies dysuria Musculoskeletal Musculoskeletal: Denies back pain and Denies numbness Integumentary/Breasts Skin/Breast: Denies lesions and Denies rash Neurologic Neurologic: Reports dizziness, Denies localized weakness and Denies numbness Allergic/Immunologic Allergic/Immunologic: Denies throat swelling PFSH All Active Problems (Updated 05/27/22 @ 19:05 by Shawnee Gonzalez DO) Dehydration (Acute) Acute kidney injury (Acute) Hypotension (Acute) Acute kidney injury (Acute) Alcohol abuse (Chronic) Substance abuse (Acute) Anxiety and depression (Chronic) GERD (gastroesophageal reflux disease) (Chronic) Essential hypertension (Acute) Hyperlipidemia (Acute) Tobacco abuse (Acute) Achilles tendinitis (Acute) Obesity (Chronic) Dementia without behavioral disturbance (Acute) Restless legs syndrome (Acute) Hearing loss (Acute) Insomnia, transient (Acute) Chronic atrial fibrillation (Acute) Asymptomatic postmenopausal status (Acute) Angina pectoris (Chronic) Anemia (Chronic) Diabetes mellitus with cataract (Acute) Age related osteoporosis (Acute) Abnormal EKG (Acute) Schizophrenia (Chronic) Saddle pulmonary embolus (Acute) Medical History (Updated 05/27/22 @ 19:05 by Shawnee Gonzalez DO) Asthma COPD (chronic obstructive pulmonary disease) Hepatitis Pulmonary embolism Surgical History History of ankle surgery History of bilateral tubal ligation History of hysterectomy Hx of cholecystectomy Family History Father History of blood clots Emphysema lung Sister Diabetes Mother Glaucoma Social History Smoking/Tobacco Use Status: Current every day Smoking risk assessment performed?: Yes Alcohol Intake: never Substance use type: does not use Do you feel safe at home: Yes Do you feel safe in your relationship?: Yes Exam Const General: cooperative and no acute distress Orientation: alert, awake and oriented x3 HENMT Head: normal to inspection Face and sinus: normal facial exam Mouth: mucous membranes dry Eyes General: appearance normal, both eyes and all related structures Pupils: PERRL EOM: EOM intact bilaterally Neck Neck: normal visual inspection and No submandibular swelling Lymphatic: no lymphadenopathy noted Chest Chest: normal inspection of the chest and no tenderness Resp Effort & Inspection: normal respiratory effort and able to speak in complete sentences Auscultation: clear to auscultation bilaterally Cardio Rate: regular rate Rhythm: regular rhythm GI Inspection: normal to inspection Palpation: soft, not firm, not rigid and nontender Auscultation: hypoactive bowel sounds Back/Spine/Pelvis Thoracic/Lumbar Spine: thoracic and lumbar spine normal to inspection Pelvis: no pain with anterior-posterior compression Skin General skin exam: no rashes or lesions noted Neuro General: patient alert, patient awake and patient oriented x3 Cognition: normal cognition Speech: speech normal Motor: muscle tone normal throughout Sensory Exam: no sensory deficits noted Extrem General: normal to inspection, full ROM, capillary refill normal, no calf tenderness bilaterally and no edema Psych Appearance: grossly normal Mental Status: mental status grossly normal Speech and Movement: speech and movement normal Affect: normal affect
[2022-05-27] MEDS: Normal Saline 1,000 ML 1000 ML IV ×2 (15:12→16:43)
[2022-05-27 15:21] LABS: Abs Immature Grans 0.02 10^3/uL (0.0-0.06); Absolute Lymphocyte Count 0.71 10^3/uL (1.2-3.4); Absolute Monocyte Count 0.31 10^3/uL (0.1-0.8); Absolute Neutrophil Count 2.67 10^3/uL (1.2-6.7); HCT 30.5 % (36.0-46.0); HGB 9.9 g/dL (11.2-15.7); Immature Grans % 0.5; Lymphocytes % 19.1; MCH 28.1 pg (27.0-33.0); MCHC 32.5 % (32.0-36.0); MCV 87 fL (80-95); MPV 9.7 fL (8.0-11.0); Monocytes % 8.4; Platelet Count 185 10^3/uL (130-400); RBC 3.52 10^6/uL (3.93-5.22); RDW 18.4 % (11.7-14.6); RDW-SD 58.4 fL; WBC 3.71 10^3/uL (4.4-10.8)
[2022-05-27 15:42] LABS: ALT 17 U/L (14-59); AST 14 U/L (15-37); Albumin 3.6 g/dL (3.4-5.0); Alkaline Phosphatase 87 U/L (46-116); Anion Gap 4.9 mmol/L (3-11); BUN 32 mg/dL (7-18); Bilirubin, Total 0.4 mg/dL (0.2-1.0); CO2 32.1 mmol/L (21.0-32.0); CREATININE 2.6 mg/dL (0.55-1.02); Calcium 9.4 mg/dL (8.5-10.1); Chloride 97 mmol/L (98-107); Estimated GFR 20.49 (mL/min/1.73m2); Glucose 101 mg/dL (74-106); Magnesium 1.7 mg/dL (1.8-2.4); Potassium 4.8 mmol/L (3.5-5.1); Sodium 134 mmol/L (136-145); Total Protein 7.1 g/dL (6.4-8.2); Troponin I < 50 ng/L (<or=60)
--- NOTE | 2022-05-27 16:00 | DI.CT_ITS ---
Exam(s) CT CHEST/ABD/PEL WO EXAM: CT CHEST/ABD/PEL WO CLINICAL HISTORY: alma, hypotension, r/o renal mass, bleeding, pna TECHNIQUE: Imaging Protocol: Axial computed tomography images with coronal and sagittal reformatted images were created and reviewed COMPARISON: No exams were available for comparison FINDINGS: CHEST: Tracheobronchial tree: Patent where visualized. Pulmonary parenchyma: No consolidation or dominant measurable mass. Marked emphysematous changes are seen in the lungs. Plexus cysts or scarring is seen in the lung bases. Mediastinum and Tori: No dominant adenopathy or fluid collection. The esophagus is unremarkable. Thyroid gland: Unremarkable. Pleura: No effusion or pneumothorax. Heart: The heart is not dilated. No coronary artery calcifications are seen. No pericardial effusion. Aorta: Thoracic aorta non-dilated. Mild atherosclerosis. Lymph nodes: Within normal limits. Bones:Within normal limits for the patient's age. Soft tissues: Unremarkable. ABDOMEN: Liver: Normal density. No measurable mass. Gallbladder and Biliary Tract: Status post cholecystectomy. No significant biliary ductal dilatation . Pancreas: Normal density, no abnormal calcifications or inflammatory process. Spleen: Normal. Adrenals: No masses seen. Kidneys: Normal size, contour and axis. No radiodense stones or obstructive uropathy. No masses seen. Abdominal Aorta: Abdominal portion non-dilated. Atherosclerosis is present. Bowel: No obstruction or bowel wall thickening. Appendix is unremarkable. Peritoneal Cavity: No ascites, collection or mesenteric inflammatory response. No free air. Lymph Nodes: Within normal limits. Bones: Within normal limits for the patient's age. Soft Tissues: There is a small fat containing umbilical hernia. PELVIS: Bladder: Symmetric distention, no gross wall thickening. Reproductive Organs: Status post hysterectomy. Lymph Nodes: Within normal limits. Bones: Within normal limits for the patient's age. IMPRESSION: 1. No acute pulmonary process. 2. No acute abdominal or pelvic process. 3. No evidence of an abdominal mass on this noncontrast examination. RADIATION DOSE DELIVERED: 1,446.52mGy.cm Total DLP 1,446.52mGy.cm Total DLP DATA REPOSITORY: All CT scans at this facility are submitted to the National Radiology Data Registry (NRDR) Dose Index Registry (DIR) with the [employer] [place] [employer] (A[employer]). RADIATION OPTIMIZATION: All CT scans at this facility use at least one of these dose optimization te chniques: automated exposure control; mA and/or kV adjustment per patient size (includes targeted exa ms where dose is matched to clinical indication); or iterative reconstruction.
[2022-05-27 16:41] LABS: Bilirubin Negative (Negative); Blood Negative (Negative); Clarity Clear (Clear); Glucose Negative (Negative); Ketones Negative (Negative); Leukocyte Esterase Negative (Negative); Nitrite Negative (Negative); Specific Gravity 1.015 (1.005-1.025); Urobilinogen 0.2 EU/dL (Up TO 0.2)
--- NOTE | 2022-05-27 17:42 | DI.VRAD_ITS ---
PROCEDURE INFORMATION: Exam: CT Chest Without Contrast; Diagnostic Exam date and time: 05/27/2022 4:09 PM Age: 62 years old Clinical indication: Other: Tacos, hypotension, R/O renal mass, bleeding, pna TECHNIQUE: Imaging protocol: Diagnostic computed tomography of the chest without contrast. COMPARISON: CR XR CHEST 2V PA LATERAL 05/14/2022 5:29 PM FINDINGS: Lungs: Moderate centrilobular emphysematous changes are present. No suspicious parenchymal lung nodule. Bilateral [id number] bronchiectasis worse within the bases. Pleural spaces: Unremarkable. No pneumothorax. No pleural effusion. Heart: No significant coronary artery calcifications. No cardiomegaly. No pericardial effusion. Lymph nodes: Unremarkable. No enlarged lymph nodes. Vasculature: Unremarkable. No aortic aneurysm. Bones/joints: Unremarkable. No acute fracture. Soft tissues: Unremarkable. IMPRESSION: 1. No evidence of acute cardiopulmonary process. 2. Bilateral [id number]-vp-[id number] bronchiectasis worse within the bases. PROCEDURE INFORMATION: Exam: CT Abdomen And Pelvis Without Contrast Exam date and time: 05/27/2022 4:09 PM Age: 62 years old Clinical indication: Other: Tacos, hypotension, R/O renal mass, bleeding, pna TECHNIQUE: Imaging protocol: Computed tomography of the abdomen and pelvis without contrast. COMPARISON: CR XR CHEST 2V PA LATERAL 05/14/2022 5:29 PM FINDINGS: Liver: Normal. No mass. Gallbladder and bile ducts: There has been a cholecystectomy. Pancreas: Normal. No ductal dilation. Spleen: Normal. No splenomegaly. Adrenal glands: Normal. No mass. Kidneys and ureters: Normal. No hydronephrosis. Stomach and bowel: Unremarkable. No obstruction. No mucosal thickening. Appendix: No evidence of appendicitis. Intraperitoneal space: Unremarkable. No free air. No significant fluid collection. Vasculature: The vasculature demonstrates diffuse mild atherosclerotic calcification. Lymph nodes: Unremarkable. No enlarged lymph nodes. Urinary bladder: The bladder is moderately distended. Reproductive: Unremarkable as visualized. Bones/joints: Unremarkable. No acute fracture. Soft tissues: Small umbilical hernia containing fat. IMPRESSION: 1. No evidence of acute abdominal or pelvic process. No evidence of renal mass on this unenhanced study. 2. Small umbilical hernia containing fat. Dictated and Authenticated by: Greg Acevedo MD. Ordering:KATHY Mallory MD
[2022-05-27 17:56] LABS: Anion Gap 3.8 mmol/L (3-11); BUN 29 mg/dL (7-18); CO2 31.2 mmol/L (21.0-32.0); CREATININE 2.2 mg/dL (0.55-1.02); Calcium 8.2 mg/dL (8.5-10.1); Chloride 104 mmol/L (98-107); Estimated GFR 25.04 (mL/min/1.73m2); Glucose 85 mg/dL (74-106); Potassium 4.5 mmol/L (3.5-5.1); Sodium 139 mmol/L (136-145)
== END 2022-05-27 19:15 | disposition home or self-care (01) ==
PROVIDERS: Emergency Provider Physician Assistant; PCP Nurse Practitioner Family
DX: I95.9 Hypotension, unspecified (principal); N17.9 Acute kidney failure, unspecified; I10 Essential (primary) hypertension; E11.9 Type 2 diabetes mellitus without complications; J44.9 Chronic obstructive pulmonary disease, unspecified; Z86.711 Personal history of pulmonary embolism; Z79.01 Long term (current) use of anticoagulants; Z99.81 Dependence on supplemental oxygen; Z79.51 Long term (current) use of inhaled steroids; F17.200 Nicotine dependence, unspecified, uncomplicated
CPT/HCPCS: 36415; 71250; 80048; 80053; 93005; 96360; 96361; 99284; 74176; 81003; 83735; 84484; 85025; 93010; 99285

== ENCOUNTER 2022-05-27 19:07 | Outpatient (REF) | payer MEDICAID, SELFPAY ==
[2022-06-01 09:43] LABS: Clozapine 689 ng/mL (350-600); Clozapine+Norclozapine Total 1003 ng/mL; Norclozapine 314 ng/mL
== END 2022-05-27 19:08 | disposition home or self-care (01) ==
LOC: NCHCN 19:07
PROVIDERS: PCP Nurse Practitioner Family; Visit Provider Nurse Practitioner Family
DX: N17.9 Acute kidney failure, unspecified (principal); I48.20 Chronic atrial fibrillation, unspecified; Z99.81 Dependence on supplemental oxygen; Z02.89 Encounter for other administrative examinations
CPT/HCPCS: 80159

== ENCOUNTER 2022-06-03 17:08 | Outpatient (REF) | payer MEDICAID, SELFPAY ==
[2022-06-03 19:27] LABS: Abs Immature Grans 0.02 10^3/uL (0.0-0.06); Absolute Basophil Count 0.01 10^3/uL (0.0-0.2); Absolute Lymphocyte Count 0.85 10^3/uL (1.2-3.4); Absolute Neutrophil Count 3.52 10^3/uL (1.2-6.7); Basophils % 0.2; HCT 33.7 % (36.0-46.0); HGB 11.2 g/dL (11.2-15.7); Immature Grans % 0.4; Lymphocytes % 17.7; MCH 28.6 pg (27.0-33.0); MCHC 33.2 % (32.0-36.0); MCV 86 fL (80-95); Monocytes % 8.3; Neutrophils % 73.4; Platelet Count 195 10^3/uL (130-400); RBC 3.91 10^6/uL (3.93-5.22); RDW 17.3 % (11.7-14.6); RDW-SD 55.2 fL
[2022-06-03 20:01] LABS: ALT 19 U/L (14-59); AST 19 U/L (15-37); Albumin 3.9 g/dL (3.4-5.0); Alkaline Phosphatase 87 U/L (46-116); Anion Gap 10.4 mmol/L (3-11); BUN 18 mg/dL (7-18); Bilirubin, Total 0.4 mg/dL (0.2-1.0); CO2 26.6 mmol/L (21.0-32.0); CREATININE 1.4 mg/dL (0.55-1.02); Calcium 9.9 mg/dL (8.5-10.1); Chloride 100 mmol/L (98-107); Estimated GFR 43.07 (mL/min/1.73m2); Glucose 164 mg/dL (74-106); Potassium 3.9 mmol/L (3.5-5.1); Sodium 137 mmol/L (136-145); Total Protein 7.5 g/dL (6.4-8.2)
== END 2022-06-03 17:09 | disposition home or self-care (01) ==
LOC: NCHCN 17:08
PROVIDERS: PCP Nurse Practitioner Family; Visit Provider Nurse Practitioner Family
DX: I48.20 Chronic atrial fibrillation, unspecified (principal); N17.9 Acute kidney failure, unspecified; Z99.81 Dependence on supplemental oxygen
CPT/HCPCS: 80053; 85025

== ENCOUNTER 2022-06-10 17:17 | Outpatient (REF) | payer MEDICAID, SELFPAY ==
[2022-06-10 17:54] LABS: HCT 32.2 % (36.0-46.0); HGB 10.4 g/dL (11.2-15.7); MCH 28.7 pg (27.0-33.0); MCHC 32.3 % (32.0-36.0); MCV 89 fL (80-95); MPV 9.9 fL (8.0-11.0); Platelet Count 177 10^3/uL (130-400); RBC 3.62 10^6/uL (3.93-5.22); RDW 17.1 % (11.7-14.6); RDW-SD 55.2 fL
[2022-06-10 18:02] LABS: ALT 19 U/L (14-59); AST 18 U/L (15-37); Albumin 3.8 g/dL (3.4-5.0); Alkaline Phosphatase 82 U/L (46-116); Anion Gap 8.8 mmol/L (3-11); BUN 11 mg/dL (7-18); Bilirubin, Total 0.4 mg/dL (0.2-1.0); CO2 26.2 mmol/L (21.0-32.0); CREATININE 0.9 mg/dL (0.55-1.02); Calcium 9.3 mg/dL (8.5-10.1); Chloride 103 mmol/L (98-107); Estimated GFR 73.19 (mL/min/1.73m2); Glucose 94 mg/dL (74-106); Potassium 3.7 mmol/L (3.5-5.1); Sodium 138 mmol/L (136-145)
== END 2022-06-10 17:18 | disposition home or self-care (01) ==
LOC: NCHCN 17:17
PROVIDERS: PCP Nurse Practitioner Family; Visit Provider Nurse Practitioner Family
DX: Z02.89 Encounter for other administrative examinations (principal); N17.9 Acute kidney failure, unspecified
CPT/HCPCS: 80053; 85027

== ENCOUNTER 2022-06-15 13:48 | Outpatient (REF) | payer MEDICAID, SELFPAY ==
[2022-06-15 14:55] LABS: Abs Immature Grans 0.02 10^3/uL (0.0-0.06); Absolute Lymphocyte Count 0.79 10^3/uL (1.2-3.4); Absolute Monocyte Count 0.28 10^3/uL (0.1-0.8); Absolute Neutrophil Count 2.25 10^3/uL (1.2-6.7); HCT 31.9 % (36.0-46.0); HGB 10.2 g/dL (11.2-15.7); Immature Grans % 0.6; Lymphocytes % 23.7; MCH 28.3 pg (27.0-33.0); MCV 89 fL (80-95); MPV 9.6 fL (8.0-11.0); Monocytes % 8.4; Neutrophils % 67.3; Platelet Count 168 10^3/uL (130-400); RDW 16.9 % (11.7-14.6); RDW-SD 54.6 fL; WBC 3.34 10^3/uL (4.4-10.8)
[2022-06-15 15:53] LABS: ALT 21 U/L (14-59); AST 17 U/L (15-37); Albumin 3.8 g/dL (3.4-5.0); Alkaline Phosphatase 79 U/L (46-116); Anion Gap 9.6 mmol/L (3-11); BUN 8 mg/dL (7-18); Bilirubin, Total 0.4 mg/dL (0.2-1.0); CO2 26.4 mmol/L (21.0-32.0); Calcium 9.4 mg/dL (8.5-10.1); Chloride 102 mmol/L (98-107); Estimated GFR 64.49 (mL/min/1.73m2); Glucose 178 mg/dL (74-106); Potassium 3.5 mmol/L (3.5-5.1); Sodium 138 mmol/L (136-145)
== END 2022-06-15 13:49 | disposition home or self-care (01) ==
LOC: NCHCN 13:48
PROVIDERS: PCP Nurse Practitioner Family; Visit Provider Nurse Practitioner Family
DX: N17.9 Acute kidney failure, unspecified
CPT/HCPCS: 80053; 85025

== ENCOUNTER 2022-06-24 15:17 | Outpatient (REF) | payer MEDICAID, SELFPAY ==
[2022-06-24 18:12] LABS: Abs Immature Grans 0.03 10^3/uL (0.0-0.06); Absolute Lymphocyte Count 0.83 10^3/uL (1.2-3.4); Absolute Monocyte Count 0.34 10^3/uL (0.1-0.8); Absolute Neutrophil Count 3.12 10^3/uL (1.2-6.7); HGB 10.1 g/dL (11.2-15.7); Immature Grans % 0.7; Lymphocytes % 19.2; MCH 29.1 pg (27.0-33.0); MCHC 32.6 % (32.0-36.0); MCV 89 fL (80-95); MPV 10.2 fL (8.0-11.0); Monocytes % 7.9; Neutrophils % 72.2; Platelet Count 177 10^3/uL (130-400); RBC 3.47 10^6/uL (3.93-5.22); RDW 15.9 % (11.7-14.6); RDW-SD 52.2 fL; WBC 4.32 10^3/uL (4.4-10.8)
[2022-06-24 18:31] LABS: ALT 20 U/L (14-59); AST 18 U/L (15-37); Albumin 3.5 g/dL (3.4-5.0); Alkaline Phosphatase 73 U/L (46-116); Anion Gap 11.5 mmol/L (3-11); BUN 7 mg/dL (7-18); Bilirubin, Total 0.3 mg/dL (0.2-1.0); CO2 25.5 mmol/L (21.0-32.0); CREATININE 0.9 mg/dL (0.55-1.02); Calcium 9.1 mg/dL (8.5-10.1); Chloride 103 mmol/L (98-107); Estimated GFR 73.19 (mL/min/1.73m2); Glucose 122 mg/dL (74-106); Potassium 3.2 mmol/L (3.5-5.1); Sodium 140 mmol/L (136-145); Total Protein 6.6 g/dL (6.4-8.2)
[2022-06-28 23:56] LABS: Clozapine 586 ng/mL (350-600); Clozapine+Norclozapine Total 859 ng/mL; Norclozapine 273 ng/mL
== END 2022-06-24 15:18 | disposition home or self-care (01) ==
LOC: NCHCN 15:17
PROVIDERS: PCP Nurse Practitioner Family; Visit Provider Nurse Practitioner Family
DX: N17.9 Acute kidney failure, unspecified (principal); Z02.89 Encounter for other administrative examinations
CPT/HCPCS: 80053; 80159; 85025

== ENCOUNTER 2022-07-01 15:24 | Outpatient (REF) | payer MEDICAID, SELFPAY ==
[2022-07-01 18:02] LABS: Abs Immature Grans 0.02 10^3/uL (0.0-0.06); Absolute Neutrophil Count 2.12 10^3/uL (1.2-6.7); HCT 31.8 % (36.0-46.0); HGB 10.1 g/dL (11.2-15.7); Immature Grans % 0.6; Lymphocytes % 24.7; MCH 28.5 pg (27.0-33.0); MCHC 31.8 % (32.0-36.0); MCV 90 fL (80-95); MPV 9.9 fL (8.0-11.0); Monocytes % 9.3; Neutrophils % 65.4; Platelet Count 163 10^3/uL (130-400); RBC 3.54 10^6/uL (3.93-5.22); RDW 14.9 % (11.7-14.6); RDW-SD 48.8 fL; WBC 3.24 10^3/uL (4.4-10.8)
== END 2022-07-01 15:25 | disposition home or self-care (01) ==
LOC: NCHCN 15:24
PROVIDERS: PCP Nurse Practitioner Family; Visit Provider Nurse Practitioner Family
DX: Z51.81 Encounter for therapeutic drug level monitoring (principal)
CPT/HCPCS: 85025

== ENCOUNTER 2022-07-08 14:47 | Outpatient (REF) | payer MEDICAID, SELFPAY ==
[2022-07-08 17:57] LABS: Abs Immature Grans 0.02 10^3/uL (0.0-0.06); Absolute Lymphocyte Count 0.95 10^3/uL (1.2-3.4); Absolute Monocyte Count 0.36 10^3/uL (0.1-0.8); Absolute Neutrophil Count 2.54 10^3/uL (1.2-6.7); HCT 32.1 % (36.0-46.0); HGB 10.2 g/dL (11.2-15.7); Immature Grans % 0.5; Lymphocytes % 24.5; MCH 28.7 pg (27.0-33.0); MCHC 31.8 % (32.0-36.0); MCV 90 fL (80-95); MPV 10.2 fL (8.0-11.0); Monocytes % 9.3; Neutrophils % 65.7; Platelet Count 166 10^3/uL (130-400); RBC 3.56 10^6/uL (3.93-5.22); RDW-SD 49.4 fL; WBC 3.87 10^3/uL (4.4-10.8)
== END 2022-07-08 14:48 | disposition home or self-care (01) ==
LOC: NCHCN 14:47
PROVIDERS: PCP Nurse Practitioner Family; Visit Provider Nurse Practitioner Family
DX: N17.9 Acute kidney failure, unspecified (principal); Z79.899 Other long term (current) drug therapy
CPT/HCPCS: 85025

== ENCOUNTER 2022-07-15 15:17 | Outpatient (REF) | payer MEDICAID, SELFPAY ==
[2022-07-15 18:23] LABS: Abs Immature Grans 0.02 10^3/uL (0.0-0.06); Absolute Lymphocyte Count 1.12 10^3/uL (1.2-3.4); Absolute Monocyte Count 0.45 10^3/uL (0.1-0.8); HGB 10.8 g/dL (11.2-15.7); Immature Grans % 0.4; Lymphocytes % 23.9; MCH 28.6 pg (27.0-33.0); MCHC 31.8 % (32.0-36.0); MCV 90 fL (80-95); MPV 10.1 fL (8.0-11.0); Monocytes % 9.6; Neutrophils % 66.1; Platelet Count 211 10^3/uL (130-400); RBC 3.78 10^6/uL (3.93-5.22); RDW 14.8 % (11.7-14.6); WBC 4.69 10^3/uL (4.4-10.8)
== END 2022-07-15 15:18 | disposition home or self-care (01) ==
LOC: NCHCN 15:17
PROVIDERS: PCP Nurse Practitioner Family; Visit Provider Nurse Practitioner Family
DX: N17.9 Acute kidney failure, unspecified (principal); Z51.81 Encounter for therapeutic drug level monitoring
CPT/HCPCS: 85025

== ENCOUNTER 2022-07-19 09:08 | Outpatient (CLI) | payer MEDICAID, SELFPAY ==
--- NOTE | 2022-07-19 09:00 | RT.EKG_ITS ---
APPROVED REPORT Exam: Resting ECG Reason for Exam: HTN Patient Location: O HR:102 bpm ECG Measurements Heart Rate 102 AXIS ND 165 P 72 QRSd 82 QRS 95 QT 346 T 14 QTc 451 Conclusion Sinus tachycardia...rate> 99 Right axis deviation...QRS axis ( 91,269) Nondiagnostic ST-T abnormalities
== END 2022-07-19 09:09 | disposition home or self-care (01) ==
LOC: DI.CARD 09:10
PROVIDERS: PCP Nurse Practitioner Family; Visit Provider Internal Medicine Cardiovascular Disease
DX: E78.5 Hyperlipidemia, unspecified (principal); I10 Essential (primary) hypertension; R94.31 Abnormal electrocardiogram [ECG] [EKG]; R00.0 Tachycardia, unspecified
CPT/HCPCS: 93010

== ENCOUNTER 2022-07-22 16:11 | Outpatient (REF) | payer MEDICAID, SELFPAY ==
[2022-07-22 16:31] LABS: Abs Immature Grans 0.05 10^3/uL (0.0-0.06); Absolute Basophil Count 0.01 10^3/uL (0.0-0.2); Absolute Lymphocyte Count 1.35 10^3/uL (1.2-3.4); Basophils % 0.2; HCT 35.8 % (36.0-46.0); Immature Grans % 0.9; Lymphocytes % 24.5; MCH 28.4 pg (27.0-33.0); MCHC 30.7 % (32.0-36.0); MCV 92 fL (80-95); MPV 10.3 fL (8.0-11.0); Monocytes % 9.1; Neutrophils % 65.3; Platelet Count 214 10^3/uL (130-400); RBC 3.88 10^6/uL (3.93-5.22); RDW 14.8 % (11.7-14.6); RDW-SD 49.6 fL; WBC 5.51 10^3/uL (4.4-10.8)
[2022-07-22 16:40] LABS: Anion Gap 7.3 mmol/L (3-11); BUN 10 mg/dL (7-18); CO2 31.7 mmol/L (21.0-32.0); CREATININE 1.1 mg/dL (0.55-1.02); Calcium 8.7 mg/dL (8.5-10.1); Chloride 103 mmol/L (98-107); Estimated GFR 57.52 (mL/min/1.73m2); Glucose 168 mg/dL (74-106); Potassium 3.4 mmol/L (3.5-5.1); Sodium 142 mmol/L (136-145)
== END 2022-07-22 16:12 | disposition home or self-care (01) ==
LOC: NCHCN 16:11
PROVIDERS: PCP Nurse Practitioner Family; Visit Provider Nurse Practitioner Family
DX: I48.20 Chronic atrial fibrillation, unspecified (principal); N17.9 Acute kidney failure, unspecified; J44.1 Chronic obstructive pulmonary disease with (acute) exacerbation; Z99.81 Dependence on supplemental oxygen
CPT/HCPCS: 80048; 85025

== ENCOUNTER 2022-07-29 15:13 | Outpatient (REF) | payer MEDICAID, SELFPAY ==
[2022-07-29 15:24] LABS: Abs Immature Grans 0.08 10^3/uL (0.0-0.06); Absolute Basophil Count 0.01 10^3/uL (0.0-0.2); Absolute Monocyte Count 0.29 10^3/uL (0.1-0.8); Absolute Neutrophil Count 1.98 10^3/uL (1.2-6.7); Basophils % 0.3; HCT 36.8 % (36.0-46.0); HGB 11.3 g/dL (11.2-15.7); Immature Grans % 2.5; Lymphocytes % 25.3; MCH 28.8 pg (27.0-33.0); MCHC 30.7 % (32.0-36.0); MCV 94 fL (80-95); MPV 9.8 fL (8.0-11.0); Monocytes % 9.2; Neutrophils % 62.7; Platelet Count 136 10^3/uL (130-400); RBC 3.92 10^6/uL (3.93-5.22); RDW 14.9 % (11.7-14.6); RDW-SD 50.8 fL; WBC 3.16 10^3/uL (4.4-10.8)
== END 2022-07-29 15:14 | disposition home or self-care (01) ==
LOC: NCHCN 15:13
PROVIDERS: PCP Nurse Practitioner Family; Visit Provider Nurse Practitioner Family
DX: I10 Essential (primary) hypertension (principal); J44.9 Chronic obstructive pulmonary disease, unspecified; Z79.899 Other long term (current) drug therapy
CPT/HCPCS: 85025

== ENCOUNTER 2022-08-06 18:19 | Outpatient (REF) | payer MEDICAID, SELFPAY ==
[2022-08-06 18:27] LABS: Abs Immature Grans 0.02 10^3/uL (0.0-0.06); Absolute Lymphocyte Count 1.19 10^3/uL (1.2-3.4); Absolute Monocyte Count 0.35 10^3/uL (0.1-0.8); Absolute Neutrophil Count 3.18 10^3/uL (1.2-6.7); HGB 11.7 g/dL (11.2-15.7); Immature Grans % 0.4; Lymphocytes % 25.1; MCH 28.1 pg (27.0-33.0); MCHC 30.8 % (32.0-36.0); MCV 91 fL (80-95); MPV 10.7 fL (8.0-11.0); Monocytes % 7.4; Neutrophils % 67.1; Platelet Count 188 10^3/uL (130-400); RBC 4.17 10^6/uL (3.93-5.22); RDW 14.6 % (11.7-14.6); RDW-SD 48.8 fL; WBC 4.74 10^3/uL (4.4-10.8)
== END 2022-08-06 18:20 | disposition home or self-care (01) ==
LOC: NCHCN 18:19
PROVIDERS: PCP Nurse Practitioner Family; Visit Provider Nurse Practitioner Family
DX: Z51.81 Encounter for therapeutic drug level monitoring (principal)
CPT/HCPCS: 85025

== ENCOUNTER 2022-08-12 15:59 | Outpatient (REF) | payer MEDICAID, SELFPAY ==
[2022-08-12 16:04] LABS: Abs Immature Grans 0.01 10^3/uL (0.0-0.06); Absolute Lymphocyte Count 0.75 10^3/uL (1.2-3.4); Absolute Monocyte Count 0.36 10^3/uL (0.1-0.8); Absolute Neutrophil Count 2.77 10^3/uL (1.2-6.7); HCT 35.8 % (36.0-46.0); HGB 11.1 g/dL (11.2-15.7); Immature Grans % 0.3; Lymphocytes % 19.3; MCH 28.3 pg (27.0-33.0); MCV 91 fL (80-95); MPV 10.6 fL (8.0-11.0); Monocytes % 9.3; Neutrophils % 71.1; Platelet Count 211 10^3/uL (130-400); RBC 3.92 10^6/uL (3.93-5.22); RDW 14.5 % (11.7-14.6); RDW-SD 48.2 fL; WBC 3.89 10^3/uL (4.4-10.8)
== END 2022-08-12 16:00 | disposition home or self-care (01) ==
LOC: NCHCN 15:59
PROVIDERS: PCP Nurse Practitioner Family; Visit Provider Nurse Practitioner Family
DX: Z51.81 Encounter for therapeutic drug level monitoring (principal)
CPT/HCPCS: 85025

== ENCOUNTER 2022-08-19 15:38 | Outpatient (REF) | payer MEDICAID, SELFPAY ==
[2022-08-19 16:26] LABS: Abs Immature Grans 0.03 10^3/uL (0.0-0.06); Absolute Monocyte Count 0.36 10^3/uL (0.1-0.8); Absolute Neutrophil Count 4.01 10^3/uL (1.2-6.7); HCT 36.5 % (36.0-46.0); HGB 11.2 g/dL (11.2-15.7); Immature Grans % 0.6; Lymphocytes % 15.4; MCHC 30.7 % (32.0-36.0); MCV 91 fL (80-95); MPV 10.6 fL (8.0-11.0); Monocytes % 6.9; Neutrophils % 77.1; Platelet Count 168 10^3/uL (130-400); RDW-SD 47.4 fL
[2022-08-19 16:37] LABS: ALT 22 U/L (14-59); AST 21 U/L (15-37); Alkaline Phosphatase 82 U/L (46-116); Anion Gap 7.9 mmol/L (3-11); BUN 9 mg/dL (7-18); Bilirubin, Total 0.3 mg/dL (0.2-1.0); CO2 32.1 mmol/L (21.0-32.0); CREATININE 0.8 mg/dL (0.55-1.02); Calcium 8.6 mg/dL (8.5-10.1); Calculated LDL 23 mg/dL (<100); Chloride 102 mmol/L (98-107); Cholesterol 90 mg/dL (<200); Glucose 187 mg/dL (74-106); HDL Cholesterol 56 mg/dL (40-60); Potassium 3.1 mmol/L (3.5-5.1); Sodium 142 mmol/L (136-145); Total Protein 5.9 g/dL (6.4-8.2); Triglyceride 59 mg/dL (<150)
[2022-08-19 16:49] LABS: Hemoglobin A1C 5.3 % (<5.7)
== END 2022-08-19 15:39 | disposition home or self-care (01) ==
LOC: NCHCN 15:38
PROVIDERS: PCP Nurse Practitioner Family; Visit Provider Nurse Practitioner Family
DX: D64.9 Anemia, unspecified (principal); E11.36 Type 2 diabetes mellitus with diabetic cataract; F17.200 Nicotine dependence, unspecified, uncomplicated; Z99.81 Dependence on supplemental oxygen; J44.1 Chronic obstructive pulmonary disease with (acute) exacerbation
CPT/HCPCS: 80053; 80061; 83036; 85025

== ENCOUNTER 2022-08-27 15:53 | Outpatient (REF) | payer MEDICAID, SELFPAY ==
[2022-08-27 16:03] LABS: Absolute Basophil Count 0.02 10^3/uL (0.0-0.2); Absolute Lymphocyte Count 0.42 10^3/uL (1.2-3.4); Absolute Monocyte Count 0.17 10^3/uL (0.1-0.8); Basophils % 0.4; HCT 35.5 % (36.0-46.0); HGB 11.1 g/dL (11.2-15.7); Lymphocytes % 8.4; MCH 28.6 pg (27.0-33.0); MCHC 31.3 % (32.0-36.0); MCV 92 fL (80-95); MPV 10.4 fL (8.0-11.0); Monocytes % 3.4; Neutrophils % 85.8; Platelet Count 174 10^3/uL (130-400); RBC 3.88 10^6/uL (3.93-5.22); RDW 14.7 % (11.7-14.6); WBC 5.01 10^3/uL (4.4-10.8)
== END 2022-08-27 15:54 | disposition home or self-care (01) ==
LOC: NCHCN 15:53
PROVIDERS: PCP Nurse Practitioner Family; Visit Provider Nurse Practitioner Family
DX: Z79.899 Other long term (current) drug therapy (principal); D64.9 Anemia, unspecified
CPT/HCPCS: 85025